=== PATIENT | female | born 1935 | race Caucasian/White ===

== ENCOUNTER 2022-08-12 11:53 | Inpatient (IN) | payer MEDICARE, MEDICAID, OTHER, SELFPAY ==
--- NOTE | ~2022-08-12 | CT_ITS ---
EXAMINATION: CT HEAD WITHOUT CONTRAST CLINICAL INFORMATION: Right arm weakness, rule out stroke. COMPARISON: None TECHNIQUE: Contiguous axial imaging was performed from the skull base to vertex without intravenous administration of contrast. Coronal and sagittal reformatted images were obtained. This CT examination was performed using dose optimization techniques as appropriate, variously including the following: *Automated exposure control *Adjustment of mA and/or kV according to patient size (this includes techniques or standardized protocols for targeted exams where dose is matched to indication/reason for exam; i.e. extremities or head) *Use of iterative reconstruction technique DLP: 646 mGy-cm FINDINGS: There is mild widening of the cortical sulci and associated ventriculomegaly. The lateral ventricles are symmetrical. Mild to moderate periventricular microvascular changes are seen. The third and fourth ventricles are in their normal midline position. The basilar and prepontine cisterns are unremarkable. There is no acute intra or extracerebral abnormality. There is no mass effect or midline shift. Sections through the bony calvarium are unremarkable. The orbits are intact. The paranasal sinuses are clear. The mastoid air cells are clear. Left ash bullosa. CT/CT head/brain wo IV con IMPRESSION: No acute intracranial pathology.
--- NOTE | ~2022-08-12 | XR_ITS ---
EXAMINATION: XR SHOULDER, RIGHT CLINICAL INFORMATION: Post reduction COMPARISON: Previous chest x-ray from earlier the same day TECHNIQUE: AP view of the right shoulder. FINDINGS: Right humeral prosthesis appears medially and slightly inferiorly dislocated with respect to the glenoid. This is similar to chest x-ray from earlier the same day. There are well-corticated soft tissue ossifications adjacent to the right shoulder. There is arthritis at the right acromioclavicular joint. XR/XR shoulder RT 1V IMPRESSION: Right shoulder dislocation similar to chest x-ray from earlier the same day
--- NOTE | ~2022-08-12 | XR_ITS ---
EXAMINATION: XR CHEST CLINICAL INFORMATION: Cough COMPARISON: 03/26/2019 TECHNIQUE: Portable 1:57 PM upright view of the chest was obtained. FINDINGS: Heart size remains top normal. In the interim, there is a irregular masslike opacity left midlung zone measuring up to approximately 5.8 cm. Lesser parenchymal disease left lower lobe. Healed left upper rib fracture noted new since previous. The right shoulder arthroplasty changes appear to be medially and inferiorly dislocated. Clips base of right neck. No other change. Prominence of the pulmonary arteries again noted suggestive of pulmonary hypertension. XR/XR chest 1V IMPRESSION: Abnormal chest x-ray as above. Masslike opacity left midlung zone with lesser parenchymal disease left lower lobe. Findings are suspicious for pneumonia although somewhat atypical. Recommend follow-up to ensure complete resolution and to exclude a masslike abnormality. Anterior subcoracoid dislocation right shoulder prosthesis.
--- NOTE | ~2022-08-12 | XR_ITS ---
EXAMINATION: XR CHEST CLINICAL INFORMATION: Shortness of breath COMPARISON: Chest x-ray and CTA chest 08/12/2022 TECHNIQUE: Frontal view of the chest was obtained. FINDINGS: Cardiac silhouette is stable. Atherosclerotic disease of the aortic arch. Airspace opacity of the lateral left lung and left lung base. Increased in prominence from imaging 2 days ago. No pleural effusion identified. No pneumothorax. Similar postsurgical changes of the right shoulder which appears chronically dislocated. XR/XR chest 1V IMPRESSION: Interval increase in prominence of airspace disease of the lateral left lung and left lung base. Follow-up imaging recommended status post treatment to ensure resolution.
--- NOTE | ~2022-08-12 | CT_ITS ---
EXAMINATION: CT ANGIOGRAM OF THE CHEST WITH AND WITHOUT CONTRAST (CT PULMONARY ANGIOGRAM FOR PE) CLINICAL INFORMATION: Reason for Exam Chest pain, lung mass, R/O PE COMPARISON: Chest x-ray 08/12/2022 CT chest 09/16/2012 TECHNIQUE: Prior to contrast administration, noncontrast localization images were obtained. Subsequently, multidetector volumetric imaging was performed from the thoracic inlet to below the diaphragms following the administration of 65 mL Omnipaque 350 intravenous contrast. No contrast reaction reported Sagittal, coronal, and MIP oblique sagittal reformatted images were obtained on the CT workstation, uploaded to PACS, and reviewed. This CT examination was performed using dose optimization techniques as appropriate, variously including the following: *Automated exposure control *Adjustment of mA and/or kV according to patient size (this includes techniques or standardized protocols for targeted exams where dose is matched to indication/reason for exam; i.e. extremities or head) *Use of iterative reconstruction technique Total exam dose-length product 230 mGy-cm FINDINGS: QUALITY OF STUDY/CONTRAST BOLUS: Satisfactory. PULMONARY ARTERIES: No central or segmental pulmonary emboli. THORACIC AORTA: No aneurysm or dissection. LUNG: Multifocal groundglass and partially consolidated airspace opacities in the left upper lobe and left lower lobe. Linear atelectasis or scarring in the anterior right upper lobe. No suspicious lung nodule. Small calcified granuloma right upper lobe. PLEURA: No pleural effusion or pneumothorax. MEDIASTINUM: Normal heart size. No pericardial effusion. No hilar or mediastinal lymphadenopathy. No evidence of septal bowing or right heart strain. Coronary arteries: Heavy volume of coronary artery calcification. CHEST WALL/AXILLA: No axillary or internal mammary lymphadenopathy. OSSEOUS STRUCTURES: Status post right shoulder replacement. This does cause streak artifact through the upper chest. UPPER ABDOMEN: Unremarkable. No reflux of contrast into the hepatic veins to suggest elevated right heart pressures. CT/CT angio chest PE protocol IMPRESSION: 1. No evidence of pulmonary embolism. 2. Multifocal airspace disease in the left lung 3. VTE: negative
--- NOTE | 2022-08-12 12:06 | ED_ITS ---
HPI - Weakness General Chief complaint: Weakness Stated complaint: weakness Time Seen by Provider: 08/12/22 11:56 Source: patient Mode of arrival: EMS Limitations: no limitations History of Present Illness HPI Narrative: 86-year-old female brought to emergency department by ambulance for evaluation weakness, headache, subjective fever, chills, chest pain, cough, shortness of breath, nausea, myalgias and arthralgias. Patient told me that she thought she was having a stroke. She states she has been feeling ill for approximately 2 days. She had a subjective fever and chills. She states that she has had rhino rrhea and a cough which is nonproductive x2 days. She complains of right-sided chest pain which she describes as a intermittent, heaviness which is moderate intensity worse with coughing. She had nausea with no vomiting or diarrhea. She states have burning with urination but no frequency. She has myalgias and arthralgias. She states she feels very weak and fatigued. The patient did have an operation on her right shoulder and states she has chronic right arm weakness but she believes that the weakness in her right arm is worse. She is also complaining of a constant, throbbing headache located throughout her entire head which is moderate intensity. She states that her symptoms got worse this morning at 08:30 a.m.. Complaint: generalized weakness Onset (ago): day(s) (2) Duration: constant Location: generalized and RUE Migration: none Severity: moderate Relieving factors: none Exacerbating factors: none Associated symptoms: chest pain, dysuria, fever/chills, headaches, nausea/vomiting, myalgias and shortness of breath Related Data Home Medications Medication Instructions Recorded Confirmed apixaban 5 mg tablet (Eliquis) 1 tab PO BID 08/12/22 atorvastatin 20 mg tablet 1 tab PO DAILY 08/12/22 diltiazem HCl 240 mg 1 cap PO DAILY 08/12/22 capsule,extended release 24 hr furosemide 40 mg tablet 1 tab PO BID 08/12/22 hydralazine 25 mg tablet 1 tab PO TID 08/12/22 levothyroxine 88 mcg tablet 1 tab PO DAILY 08/12/22 omeprazole 20 mg capsule,delayed 1 cap PO DAILY 08/12/22 release tramadol 50 mg tablet tab PO 08/12/22 Allergies Allergy/AdvReac Type Severity Reaction Status Date / Time No Known Allergies Allergy Unverified 05/20/20 17:32 Review of Systems Review of Systems: Yes all other systems are reviewed and are negative [facility] Past Medical History [facility] Narrative: Past medical history: COPD, depression, GERD, hyperlipidemia, hypothyroidism, paranoid schizophrenia, surgical repair right humerus 2015, thrush, total knee replacement, tubular adenoma of the colon, vitamin-D deficiency. Social history: The patient lives at [facility]. Medical History (Updated 08/12/22 @ 17:28 by Brennon Carlos MD) COPD (chronic obstructive pulmonary disease) Hypothyroidism Mental health disorder Shoulder symptoms with history of shoulder arthroplasty Social History Social History Advance Directives: Yes Advance Directives Information Provided: Yes Advance Directives on File: No Physical Exam 2 Vital Signs: Vital Signs: Last Vital Signs Temp 99.3 F 08/12/22 15:34 Pulse 76 08/12/22 15:34 Resp 14 08/12/22 15:34 BP 134/51 L 08/12/22 15:34 Pulse Ox 97 08/12/22 15:34 O2 Del Method 08/12/22 15:34 O2 Flow Rate 3.5 08/12/22 15:34 BMI result Body Mass Index 24.0 Const: General: cooperative and no acute distress Orientation/consciousness: oriented to person and oriented to place Limitations: no limitations HEENT: Head: Yes normal to inspection, Yes normocephalic and Yes atraumatic Ears: external ears normal General nose exam: Normal external nose present Face and sinus: Yes normal facial exam Mouth: Normal oral and palatal mucosa present Throat: Yes posterior oropharynx normal Eyes: General: appearance normal, both eyes and all related structures Pupils: Equal, round and reactive pupils present Neck: Neck: Yes normal visual inspection, Yes no lymphadenopathy, Yes trachea midline and Yes supple Chest: Chest palpation & inspection: normal inspection of the chest and normal palpation of entire chest wall Resp: Effort & Inspection: normal respiratory effort and able to speak in complete sentences Auscultation: rhonchi (Diffuse) Cardio: Rate: regular rate Rhythm: regular rhythm Heart sounds: S1 normal heart sound present, S2 normal heart sound present and no murmurs GI: Inspection: Yes normal to inspection Palpation (GI): Soft to palpation, nontender and no guarding Auscultation: normal bowel sounds : General: Yes no CVA tenderness Back/Spine/Pelvis: Back: no CVA tenderness Skin: General skin exam: no rashes or lesions noted Neuro: General: oriented to person and oriented to place Cranial nerves: Yes CN's II-XII intact bilaterally and Yes Equal, round and reactive pupils present Cognition (Neuro): normal cognition Motor exam (neuro): 5/5 motor strength present throughout (Patient had right shoulder surgery and has difficulty raising arm) Extrem: General: Yes normal to inspection Psych: Appearance: grossly normal Speech and movement: Normal speech and movement present Affect: normal affect Attitude: cooperative Thought process: Normal thought process present Thought content: Normal thought content present Course Course Course Narrative: 86-year-old female who presents emergency department for evaluation of generalized weakness with increased weakness of her right upper extremity ( patient had a right shoulder surgery and has chronic right arm weakness). Patient review of systems was positive for subjective fever, chills, rhinorrhea, nonproductive cough, right-sided chest pain, shortness of breath, nausea with no vomiting or diarrhea dysuria myalgias arthralgias-these symptoms have been going on for approximately 2 days. Physical examination did reveal diffuse rhonchorous sounds on her lung exam otherwise was unremarkable her neurologic exam was nonfocal. I ordered a CBC, CMP, lactic acid, lipase, PTT, PT INR, SARs/flu/RSV, troponin, urinalysis. I will also obtain a chest x-ray, CT scan of the brain and EKG. Patient was ordered to get normal saline IV x1 L, Toradol 15 mg IV and Zofran 4 mg IV. 1701: Laboratory evaluation: WBC elevated 13,000, anemia with an H&H of 11 and 32. Sodium low 124, chloride low 85, serum osmolality low 250, urine osmolality elevated 310, urine sodium elevated 56. Lactate acid is 1.4. Troponin detect able at 8.8 but not elevated. Radiology evaluation: Chest x-ray concerning for masslike opacity left mid lung with parenchymal disease a left lower lobe concerning for atypical pneumonia. Also anterior subcoracoid dislocation of the right shoulder prosthesis. CT pulmonary angiogram PE protocol: IMPRESSION: 1. No evidence of pulmonary embolism. 2. Multifocal airspace disease in the left lung 3. VTE: negative Dictated By:Brendan Jackson MDSigned By:<Electronically signed by Brendan Jackson MD in OV>08/12/22 1548 The patient viral pneumonia secondary to influenza. I will discuss the hyponatremia management with the covering living specialist. I will also doses just admission with the hospitalist. I did attempt to reduce the patient's shoulder, and I was unsuccessful. The patient did not fall and I suspect that this is a chronic finding. I do not think that the patient is well enough to try procedural sedation specially if this is a chronic condition. 1725: I did discuss the patient's presentation with the covering living specialist, Dr. Tamayo. 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 He recommended the patient have a oral fluid restriction of 1.5 L every 24 hours. I did discuss the patient's presentation with the covering hospitalist, Nurse practitioner check your drug use. Medications Administered Discontinued Medications Generic Name Dose Route Start Last Admin Trade Name Freq PRN Reason Stop Dose Admin Sodium Chloride 1,000 mls @ 999 mls/hr 08/12/22 12:07 08/12/22 12:38 Ns IV 08/12/22 13:07 999 mls/hr .Q1H1M STA Administration Ceftriaxone Sodium 1 gm/ 50 mls @ 100 mls/hr 08/12/22 14:19 08/12/22 16:04 Sodium Chloride IV 08/12/22 14:48 Infused ONCE ONE Infusion Azithromycin 500 mg/ Sodium 250 mls @ 125 mls/hr 08/12/22 14:19 08/12/22 16:05 Chloride IV 08/12/22 16:18 125 mls/hr ONCE ONE Administration Iohexol 65 ml 08/12/22 15:01 08/12/22 15:02 Iohexol 350 Mg/Ml 100 Ml Infus..Btl IV 08/12/22 15:02 65 ml ONCE ONE Administration Ketorolac Tromethamine 15 mg 08/12/22 12:07 08/12/22 12:37 Ketorolac Tromethamine 15 Mg/Ml Vial IVPUSH 08/12/22 12:08 15 mg ONCE STA Administration Ondansetron HCl 4 mg 08/12/22 12:07 08/12/22 12:37 Ondansetron Hcl 4 Mg/2 Ml Vial IVPUSH 08/12/22 12:08 4 mg ONCE ONE Administration Oseltamivir Phosphate 75 mg 08/12/22 14:19 08/12/22 15:11 Oseltamivir Phosphate 75 Mg Capsule PO 08/12/22 14:20 75 mg ONCE ONE Administration Medical Decision Making Medical Decision Making Differential Diagnoses: Differential diagnosis (Stroke COVID-19, RSV, flu, urinary tract infection, pneumonia) Consideration of admission/observation: Consideration of Admission/Observation (Yes) Discussion of management with other physician/healthcare provider/other source (e.g., hospitalist, j2ee consultant, behavioral health): Discussion w/other physician/healthcare provider (Donor Services Manager, hospitalist) My interpretation is Lab Attestation: I reviewed the patient's lab results. Independent interpretation of EKG, rhythm strip, radiology study: Independent interp EKG,rhythm strip, radiology study I performed an independent interpretation of the: EKG My interpretation is: Time: 1234: Normal sinus rhythm with a rate of 82, normal TX interval, QRS duration QTC interval, frequent PACs, less than [address] segment depression lead 1, 2, V5 and V6 Critical Care Time Critical Care Time Critical Care Time: Yes Total Critical Care Time: 45 Attestation: Critical Care: The patient was critically ill with a high probability of imminent or life threatening deterioration. I spent greater than 30 minutes of discontinuous time evaluating the patient,delivering critical care at the bedside, discussing and evaluating pertinent data with consultants. Critical care time does not include time spent performing separately billable procedures or teaching. Total time spent performing critical care was 45 minutes.
--- NOTE | 2022-08-12 12:07 | ECG_ITS ---
Test Reason : SOB Blood Pressure : / mmHG Vent. Rate : 082 BPM Atrial Rate : 082 BPM P-R Int : 128 ms QRS Dur : 090 ms QT Int : 384 ms P-R-T Axes : 061 014 270 degrees QTc Int : 448 ms Sinus rhythm with Premature supraventricular complexes Septal infarct , age undetermined Abnormal ECG When compared with ECG of 13-APR-2015 12:37, Premature supraventricular complexes are now Present ST now depressed in Inferior leads Nonspecific T wave abnormality now evident in Inferior leads T wave inversion now evident in Lateral leads Referred By: Brennon Carlos Electronically Signed By:PURA PAYNE MD
[2022-08-12 12:30] VITALS: BP 124/56; PULSE 70; O2SAT 94; BMI 24.0
[2022-08-12] MEDS: Ketorolac Tromethamine 15 MG/ML VIAL IVPUSH (12:37)
[2022-08-12] MEDS: ondansetron HCL 4 MG/2 ML VIAL IVPUSH (12:37)
[2022-08-12] MEDS: 0.9 % Sodium Chloride 1,000 ML 999 ML IV (12:38)
[2022-08-12 12:48] VITALS: BP 156/60; PULSE 77; RESP 14; TEMP 38.4; O2SAT 95
[2022-08-12 13:06] LABS: Basophils Percent Auto 0.1 % (0-2); Eosinophils Percent Auto 0.2 % (0-4); Hematocrit 32.8 % (37.0-47.0); Hemoglobin 11.4 g/dl (12.0-16.0); Imm Gran Abs Auto 0.06 X10*3/uL (0.00-0.03); Imm Gran Pct Auto 0.5 % (0.0-0.4); Lymphocytes Absolute Auto 0.3 X10*3/uL (1.2-4.9); Lymphocytes Percent Auto 2.6 % (20-40); MANUAL DIFF FLAG SCAN; Mean Corpuscular HGB Conc 34.8 g/dl (31.0-35.0); Mean Corpuscular Hemoglobin 30.6 pg (27.0-33.0); Mean Corpuscular Volume 87.9 fL (80.0-98.0); Mean Platelet Volume 9.3 fL (9.4-12.3); Monocytes Absolute Auto 0.4 X10*3/uL (0.1-1.2); Monocytes Percent Auto 3.2 % (2-11); Neutrophils Absolute Auto 12.2 x10*3/uL (2.0-8.3); Neutrophils Percent Auto 93.4 % (45-73); Platelet Count 235 X10*3/uL (160-400); Red Blood Count 3.73 X10*6/uL (4.20-5.50); Red Cell Distribution Width 13.2 % (11.0-16.0); SCAN SMEAR FLAG 1
[2022-08-12 13:14] LABS: INTERNATIONAL NORM RATIO 1.4 (0.9-1.1)
[2022-08-12 13:17] LABS: Partial Thromboplastin Time 34.8 SEC (26.0-36.4)
[2022-08-12 13:19] LABS: Lactic Acid 1.4 mmol/L (0.5-2.0)
[2022-08-12 13:24] LABS: Alanine Aminotransferase 16 U/L (0-31); Albumin Level 3.6 g/dL (3.5-5.0); Alkaline Phosphatase 141 U/L (39-117); Anion Gap 14 (12-20); Aspartate Amino Transferase 21 U/L (5-31); Bilirubin Total 0.4 mg/dL (0.0-1.0); Blood Urea Nitrogen 11 mg/dL (9-16); Calcium 8.4 mg/dL (8.4-10.2); Carbon Dioxide 27 mmol/L (22-29); Chloride 87 mmol/L (96-108); Creatinine Clr Calc Pharmacy 50.9; Estimated Glomerular Filt Rate > 60; Glucose Random 99 mg/dL (60-115); Lipase 8 U/L (8-78); Potassium 3.9 mmol/L (3.3-5.1); Sodium 124 mmol/L (135-145); Total Protein 5.8 g/dL (6.5-8.0)
[2022-08-12 13:29] LABS: Troponin-I High Sensitivity 8.8 ng/L (<3.5-17.0)
[2022-08-12 13:31] LABS: Appearance Urine Clear; Color Urine Yellow; Glucose Urine UA Negative (Negative); Leukocyte Esterase Urine Negative (Negative); Nitrite Urine Negative (Negative); PH 6.5 (5.0-9.0); Urine Blood Negative (Negative); Urine Ketones Negative (Negative); Urine Protein Negative (Neg-Trace)
[2022-08-12 13:35] LABS: SLIDE REVIEW VERIFIED
[2022-08-12 13:58] LABS: Influenza A PCR POSITIVE (Negative); Influenza B PCR NEGATIVE (Negative); Resp Syncy Virus RNA Qual PCR NEGATIVE (Negative); SARS COV2 PCR INHOUSE NEGATIVE (Negative)
[2022-08-12 14:49] LABS: Osmolality, Serum 255 mosm/kg (281-305)
[2022-08-12 14:49] LABS: Osmolality Urine 310 mosm/kg (373-1093)
[2022-08-12] MEDS: iohexoL 350 MG/ML 100 ML INFUS..BTL 65 ML IV (15:02)
[2022-08-12] MEDS: cefTRIAXone sodium 1 GM in 0.9 % Sodium Chloride 50 ML IV (15:10)
[2022-08-12] MEDS: Oseltamivir Phosphate 75 MG CAPSULE PO (15:11)
--- NOTE | 2022-08-12 15:18 | PC.NURSE ---
#20 IV placed in right AC without any difficulty. During CT her IV had Blown at the very end of the procedure, ice applied to site
[2022-08-12 15:34] VITALS: BP 134/51; PULSE 76; RESP 14; TEMP 37.4; O2SAT 97
[2022-08-12] MEDS: Azithromycin 500 MG in 0.9 % Sodium Chloride 250 ML 125 MG IV (16:05)
--- NOTE | 2022-08-12 17:12 | P.HPHOSP_ITS ---
History of Present Illness Date of Service: 08/12/22 Attending physician on admission: [facility] Chief Complaint: Cough 86-year-old woman presenting from assisted living facility with weakness, fever, chills, non productive cough, shortness breath, nausea, myalgias, arthralgias, rhinorrhea, intermittent right-sided chest pain with moderate heaviness mostly worse with coughing. Patient thought that she was having a stroke because she could not move her arm. She had been feeling unwell for approximately 2 days now.CTA showed left-sided pneumonia, right shoulder x-ray showed dislocation unknown if this is chronic, attempted reset in the ER was unsuccessful. Sodium was noted to be low 124, likely secondary to SIADH, fever noted of 11.2, stable blood pressure. Influenza A positive. She was given a dose of Rocephin, azithromycin, Tamiflu, Zofran, Toradol, IV fluids. She will be admitted for further management and treatment of sepsis secondary to community-acquired pneumonia and influenza A. Review of Systems Review of Systems: Denies any recent fever chills or decrease in appetite respiratory dry cough cardiovascular Denied chest pain gastrointestinal denies any dysphagia abdominal pain nausea vomiting or diarrhea genitourinary denies any dysuria frequency or hematuria musculoskeletal denies any joint pain or swelling neuropsych denies any weakness or seizures all other systems reviewed are negative [facility] Medical History (Updated 08/12/22 @ 17:28 by Brennon Carlos MD) COPD (chronic obstructive pulmonary disease) Hypothyroidism Mental health disorder Shoulder symptoms with history of shoulder arthroplasty Social History Advance Directives: Yes Advance Directives Information Provided: Yes Advance Directives on File: No Meds Allergies Allergy/AdvReac Type Severity Reaction Status Date / Time No Known Allergies Allergy Unverified 05/20/20 17:32 Home Medications Medication Instructions Recorded Confirmed Last Taken Type acetaminophen 325 mg tablet 650 mg PO Q4H PRN Fever Or Pain 08/12/22 08/12/22 08/10/22 History albuterol sulfate 90 mcg/actuation 2 puff inhalation Q4H PRN 08/12/22 08/12/22 Unknown History aerosol inhaler (ProAir HFA) Shortness Of Breath Or Wheezing apixaban 5 mg tablet (Eliquis) 5 mg PO BID 08/12/22 08/12/22 08/12/22 09:00 History ascorbic acid (vitamin C) 500 mg 500 mg PO DAILY@1200 08/12/22 08/12/22 08/12/22 12:00 History tablet atorvastatin 20 mg tablet 20 mg PO BEDTIME 08/12/22 08/12/22 08/11/22 History calcium carbonate 500 mg calcium 500 mg PO DAILY@1200 08/12/22 08/12/22 08/12/22 12:00 History (1,250 mg) tablet (Oyster Shell Calcium) cholecalciferol (vitamin D3) 25 25 mcg PO DAILY@1200 08/12/22 08/12/22 08/12/22 12:00 History mcg (1,000 unit) tablet clopidogrel 75 mg tablet 75 mg PO DAILY 08/12/22 08/12/22 08/12/22 History diltiazem HCl 240 mg 240 mg PO DAILY 08/12/22 08/12/22 08/12/22 History capsule,extended release 24 hr estradiol 0.01% (0.1 mg/gram) 1 g vaginal MOWEFR 08/12/22 08/12/22 08/11/22 History vaginal cream ferrous sulfate 325 mg (65 mg 325 mg PO DAILY@1200 08/12/22 08/12/22 08/12/22 12:00 History iron) tablet fluticasone fur. 100 mcg-umeclid 1 inh inhalation DAILY@0800 08/12/22 08/12/22 08/12/22 History 62.5 mcg-vilant 25 mcg inhalat.powder (Trelegy Ellipta) furosemide 40 mg tablet 40 mg PO BID@0600,1200 08/12/22 08/12/22 08/12/22 12:00 History hydralazine 25 mg tablet 25 mg PO TID 08/12/22 08/12/22 08/12/22 12:00 History levothyroxine 88 mcg tablet 88 mcg PO DAILY@0600 08/12/22 08/12/22 08/12/22 History lisinopril 40 mg tablet 40 mg PO DAILY 08/12/22 08/12/22 08/12/22 History multivitamin,tx-minerals 1 tab PO DAILY@1200 08/12/22 08/12/22 08/12/22 12:00 History omeprazole 20 mg capsule,delayed 20 mg PO DAILY@0630 08/12/22 08/12/2208/12/22 History release polyvinyl alcohol 1.4 % eye drops 1 drp ophthalmic (eye) DAILY PRN 08/12/22 08/12/22 Unknown History (Artificial Tears (polyvinyl Dry Eye(S) alcohol)) sodium chloride 1,000 mg soluble 1,000 mg PO BID 08/12/22 08/12/22 08/12/22 08:00 History tablet tramadol 50 mg tablet 25 mg PO TID 08/12/22 08/12/22 08/12/22 14:00 History Physical Exam Vital Signs and Narrative: Vital Signs: Last Vital Signs Temp 99.3 F 08/12/22 15:34 Pulse 76 08/12/22 15:34 Resp 14 08/12/22 15:34 BP 134/51 L 08/12/22 15:34 Pulse Ox 97 08/12/22 15:34 O2 Del Method 08/12/22 15:34 O2 Flow Rate 3.5 08/12/22 15:34 BMI result Body Mass Index 24.0 Appearing in no acute distress head is normocephalic atraumatic eyes pupils are PERRLA sclera is anicteric mouth throat mucous membranes are intact and moist neck is supple no lymphadenopathy, no JVD noted lung sounds are clear to auscultation heart regular rate rhythm, clear S1, S2 positive bowel sounds, abdomen is soft, nontender neuro patient is alert x3, no focal deficits Results Labs CBC and Chem 7: 08/13/22 06:15 08/13/22 06:14 Labs: Laboratory Results - last 24 hr 08/12/22 08/12/22 08/12/22 12:58 12:58 12:58 MCV 87.9 MCH 30.6 MCHC 34.8 RDW 13.2 Plt Count 235 MPV 9.3 L Immature Gran % (Auto) 0.5 H Neut % (Auto) 93.4 H Lymph % (Auto) 2.6 L [place] % (Auto) 3.2 Eos % (Auto) 0.2 Baso % (Auto) 0.1 Lymph # (Auto) 0.3 L [place] # (Auto) 0.4 Eos # (Auto) 0.0 Baso # (Auto) 0.0 Abs Immat Gran (auto) 0.06 H Absolute Neuts (auto) 12.2 H Absolute Nucleated RBC 0.000 Nucleated RBC % (auto) 0.0 Smear Tech's Comments VERIFIED PT INR APTT Anion Gap 14 Estim Creat Clear Calc 50.9 Estimated GFR > 60 Random Glucose 99 Osmolality Lactic Acid 1.4 Calcium 8.4 Total Bilirubin 0.4 AST 21 ALT 16 Alkaline Phosphatase 141 H Troponin I High Sens Total Protein 5.8 L Albumin 3.6 Lipase 8 Urine Color Urine Appearance Urine pH Ur Specific [place] Urine Protein Urine Glucose (UA) Urine Ketones Urine Blood Urine Nitrite Ur Leukocyte Esterase Urine Osmolality Ur Random Sodium Influenza Type A (PCR) Influenza Type B (PCR) RSV RNA Qual (PCR) SARS-CoV-2 RNA (RT-PCR) 08/12/22 08/12/22 08/12/22 12:58 12:58 12:58 MCV MCH MCHC RDW Plt Count MPV Immature Gran % (Auto) Neut % (Auto) Lymph % (Auto) [place] % (Auto) Eos % (Auto) Baso % (Auto) Lymph # (Auto) [place] # (Auto) Eos # (Auto) Baso # (Auto) Abs Immat Gran (auto) Absolute Neuts (auto) Absolute Nucleated RBC Nucleated RBC % (auto) Smear Tech's Comments PT 16.0 H INR 1.4 H APTT 34.8 Anion Gap Estim Creat Clear Calc Estimated GFR Random Glucose Osmolality Lactic Acid Calcium Total Bilirubin AST ALT Alkaline Phosphatase Troponin I High Sens 8.8 Total Protein Albumin Lipase Urine Color Urine Appearance Urine pH Ur Specific [place] Urine Protein Urine Glucose (UA) Urine Ketones Urine Blood Urine Nitrite Ur Leukocyte Esterase Urine Osmolality Ur Random Sodium Influenza Type A (PCR) POSITIVE A Influenza Type B (PCR) NEGATIVE RSV RNA Qual (PCR) NEGATIVE SARS-CoV-2 RNA (RT-PCR) NEGATIVE 08/12/22 08/12/22 08/12/22 12:58 13:21 13:21 MCV MCH MCHC RDW Plt Count MPV Immature Gran % (Auto) Neut % (Auto) Lymph % (Auto) [place] % (Auto) Eos % (Auto) Baso % (Auto) Lymph # (Auto) [place] # (Auto) Eos # (Auto) Baso # (Auto) Abs Immat Gran (auto) Absolute Neuts (auto) Absolute Nucleated RBC Nucleated RBC % (auto) Smear Tech's Comments PT INR APTT Anion Gap Estim Creat Clear Calc Estimated GFR Random Glucose Osmolality 255 L Lactic Acid Calcium Total Bilirubin AST ALT Alkaline Phosphatase Troponin I High Sens Total Protein Albumin Lipase Urine Color Yellow Urine Appearance Clear Urine pH 6.5 Ur Specific [place] 1.010 Urine Protein Negative Urine Glucose (UA) Negative Urine Ketones Negative Urine Blood Negative Urine Nitrite Negative Ur Leukocyte Esterase Negative Urine Osmolality 310 L Ur Random Sodium Influenza Type A (PCR) Influenza Type B (PCR) RSV RNA Qual (PCR) SARS-CoV-2 RNA (RT-PCR) 08/12/22 13:21 MCV MCH MCHC RDW Plt Count MPV Immature Gran % (Auto) Neut % (Auto) Lymph % (Auto) [place] % (Auto) Eos % (Auto) Baso % (Auto) Lymph # (Auto) [place] # (Auto) Eos # (Auto) Baso # (Auto) Abs Immat Gran (auto) Absolute Neuts (auto) Absolute Nucleated RBC Nucleated RBC % (auto) Smear Tech's Comments PT INR APTT Anion Gap Estim Creat Clear Calc Estimated GFR Random Glucose Osmolality Lactic Acid Calcium Total Bilirubin AST ALT Alkaline Phosphatase Troponin I High Sens Total Protein Albumin Lipase Urine Color Urine Appearance Urine pH Ur Specific [place] Urine Protein Urine Glucose (UA) Urine Ketones Urine Blood Urine Nitrite Ur Leukocyte Esterase Urine Osmolality Ur Random Sodium 56.0 Influenza Type A (PCR) Influenza Type B (PCR) RSV RNA Qual (PCR) SARS-CoV-2 RNA (RT-PCR) Imaging Radiologist's Impressions: Impressions Head CT 08/12/22 12:28 IMPRESSION: No acute intracranial pathology. Chest X-Ray 08/12/22 14:00 IMPRESSION: Abnormal chest x-ray as above. Masslike opacity left midlung zone with lesser parenchymal disease left lower lobe. Findings are suspicious for pneumonia although somewhat atypical. Recommend follow-up to ensure complete resolution and to exclude a masslike abnormality. Anterior subcoracoid dislocation right shoulder prosthesis. Shoulder X-Ray 08/12/22 14:44 IMPRESSION: Right shoulder dislocation similar to chest x-ray from earlier the same day Chest CTA 08/12/22 15:24 IMPRESSION: 1. No evidence of pulmonary embolism. 2. Multifocal airspace disease in the left lung 3. VTE: negative Assessment and Plan (1) Influenza A: Status: Acute Plan 86 year old women admitted from assisted living facility with sepsis secondary to pneumonia and influenza A Sepsis secondary to CAP in influenza a Fever and leukocytosis, normal lactic acid Rocephin and azithromycin Continue supplemental oxygen as needed Tamiflu Hyponatremia ? SIADH 1.5L for 24 hours, no IV fluids Nephrology consultation Shoulder disclocation ? chronic Unable to reduce in ED will apply sling and consult orthopedic team Analgesics as needed Hypertension Stable blood pressure Continue home medications COPD no exacerbation Mental health continue home medications GERD PPI Hypothyroidism Levothyroxine DVT prophylaxis with Milagros Attending Dr. Morales Full code Medication reconciliation is pending Patient will be admitted for 2 inpatient midnights for treatment of sepsis secondary to community-acquired pneumonia and hyponatremia Time Spent With Patient Time: Total time managing care of this patient today ____ minutes. Quality Stroke Does the patient have a stroke diagnosis?: No VTE Prior VTE?: No VTE Risk Level:: Medical - moderate - high VTE Device Contraindication: Treatment Not Indicated VTE Drug Contraindication: N/A - Med Ordered
[2022-08-12] MEDS: Acetaminophen 325 MG TABLET 650 MG PO (17:46)
[2022-08-12] MEDS: oxyCODONE HCl Immed Release 5 MG TABLET PO (17:47)
[2022-08-12 19:41] VITALS: BP 135/46; PULSE 67; RESP 20; TEMP 36.9; O2SAT 96
--- NOTE | 2022-08-12 19:49 | PC.NURSE ---
assumed care of patient at 1900 - report received from Rochelle RN. patient sleeping comfortably on stretcher. vital signs updated. call vasquez within reach. will continue to monitor . patient wearing 3L O2 baseline
--- NOTE | 2022-08-12 19:53 | PHA.MEDREC ---
Pharmacy Consult ? Medication Reconciliation Pharmacy has completed the medication reconciliation. Obtained list from [facility] [place] and completed medication list from chart.
[2022-08-13] VITALS (8 sets, daily range): BP systolic 102–158; BP diastolic 48–70; PULSE 69–91; RESP 15–20; TEMP 36.8–37.5; O2SAT 91–98
[2022-08-13 06:34] LABS: Basophils Absolute Auto 0.1 X10*3/uL (0.0-0.2); Basophils Percent Auto 0.2 % (0-2); Eosinophils Absolute Auto 0.2 X10*3/uL (0.0-0.4); Hematocrit 32.5 % (37.0-47.0); Imm Gran Abs Auto 0.17 X10*3/uL (0.00-0.03); Imm Gran Pct Auto 0.8 % (0.0-0.4); Lymphocytes Absolute Auto 0.7 X10*3/uL (1.2-4.9); Lymphocytes Percent Auto 3.5 % (20-40); MANUAL DIFF FLAG SCAN; Mean Corpuscular HGB Conc 33.8 g/dl (31.0-35.0); Mean Corpuscular Hemoglobin 30.3 pg (27.0-33.0); Mean Corpuscular Volume 89.5 fL (80.0-98.0); Mean Platelet Volume 9.7 fL (9.4-12.3); Monocytes Absolute Auto 0.8 X10*3/uL (0.1-1.2); Monocytes Percent Auto 3.9 % (2-11); Neutrophils Absolute Auto 18.8 x10*3/uL (2.0-8.3); Neutrophils Percent Auto 90.6 % (45-73); Platelet Count 231 X10*3/uL (160-400); Red Blood Count 3.63 X10*6/uL (4.20-5.50); Red Cell Distribution Width 13.2 % (11.0-16.0); SCAN SMEAR FLAG 1; White Blood Count 20.8 X10*3/uL (4.8-10.8)
[2022-08-13 06:41] LABS: Anion Gap 15 (12-20); Blood Urea Nitrogen 12 mg/dL (9-16); Calcium 8.4 mg/dL (8.4-10.2); Carbon Dioxide 24 mmol/L (22-29); Chloride 92 mmol/L (96-108); Creatinine Clr Calc Pharmacy 53.1; Estimated Glomerular Filt Rate > 60; Glucose Random 85 mg/dL (60-115); Potassium 3.7 mmol/L (3.3-5.1); Sodium 127 mmol/L (135-145)
[2022-08-13 06:42] LABS: Magnesium 1.6 mg/dL (1.6-2.6)
[2022-08-13 06:54] LABS: SLIDE REVIEW VERIFIED
[2022-08-13] MEDS: Clopidogrel Bisulfate 75 MG TABLET PO (09:11)
[2022-08-13] MEDS: dilTIAZem HCL CD 240 MG CAP.ER.DEG PO (09:12)
[2022-08-13] MEDS: lisinopriL 40 MG TABLET PO (09:12)
[2022-08-13] MEDS: traMADoL HCL 50 MG TABLET 25 MG PO ×3 (09:12→20:52)
[2022-08-13] MEDS: hydrALAZINE HCl 25 MG TABLET PO ×3 (09:13→20:53)
[2022-08-13] MEDS: 0.9 % Sodium Chloride Flush 3 ML SYRINGE IVFLUSH ×3 (09:13→20:52)
--- NOTE | 2022-08-13 09:50 | P.PNIM_ITS ---
Subjective Subjective Date of Service: 08/13/22 Review of Systems Sepsis secondary to community-acquired pneumonia and flu Physical Exam Vital Signs: Vital Signs: Last Vital Signs Temp 98.5 F 08/13/22 09:07 Pulse 80 08/13/22 09:07 Resp 20 08/13/22 09:07 BP 145/61 H 08/13/22 09:07 Pulse Ox 94 08/13/22 09:07 O2 Del Method 08/13/22 09:07 O2 Flow Rate 3.5 08/13/22 09:07 BMI result Body Mass Index 24.0 Objective Data Active Medications Acetaminophen (Acetaminophen 325 Mg Tablet) 650 mg PO Q6H PRN PRN Reason: Pain, Mild (Pain Scale 1-3) Last Admin: 08/12/22 17:46 Dose: 650 mg Documented By: AMBER Albuterol Sulfate (Albuterol Sulfate 90 Mcg 8 Gm Inhaler) 2 puff INHALE Q4H PRN PRN Reason: Shortness Of Breath Or Wheezing Artificial Tears (Artificial Tears 15 Ml Drops) 1 drop EYE-BOTH DAILY PRN PRN Reason: Dry Eye(S) Ascorbic Acid (Ascorbic Acid 500 Mg Tablet) 500 mg PO DAILY@1200 N[facility] Atorvastatin Calcium (Atorvastatin Calcium 20 Mg Tablet) 20 mg PO BEDTIME NAA Calcium Carbonate (Calcium Carbonate 500 Mg Tablet) 500 mg PO DAILY@1200 NAA Clopidogrel Bisulfate (Clopidogrel Bisulfate 75 Mg Tablet) 75 mg PO DAILY [facility] Last Admin: 08/13/22 09:11 Dose: 75 mg Documented By: KERRIE Diltiazem HCl (Diltiazem Hcl Cd 240 Mg Cap.Er.Deg) 240 mg PO DAILY [facility]; Protocol Last Admin: 08/13/22 09:12 Dose: 240 mg Documented By: KERRIE Ferrous Sulfate (Ferrous Sulfate 324 Mg Tablet.Dr) 324 mg PO DAILY@1200 N[facility] Furosemide (Furosemide 40 Mg Tablet) 40 mg PO BID@0600,1200 [facility]; Protocol Hydralazine HCl (Hydralazine Hcl 25 Mg Tablet) 25 mg PO TID [facility]; Protocol Last Admin: 08/13/22 09:13 Dose: 25 mg Documented By: KERRIE Ceftriaxone Sodium 1 gm/ (Sodium Chloride) 50 mls @ 100 mls/hr IV Q24H NAA Azithromycin 500 mg/ Sodium (Chloride) 250 mls @ 125 mls/hr IV Q24H [facility]AA Levothyroxine Sodium (Levothyroxine Sodium 88 Mcg Tablet) 88 mcg PO DAILY@0600 [facility] Lisinopril (Lisinopril 40 Mg Tablet) 40 mg PO DAILY [facility]; Protocol Last Admin: 08/13/22 09:12 Dose: 40 mg Documented By: KERRIE Multivitamins/Vitamin C (Multivitamin Tablet) 1 tab PO DAILY@1200 [facility] Non-Formulary Medication (Ijbybjfwone-Pukukqulf-Apjztisl [Trelegy Ellipta]) 1 inhalation INHALE DAILY@0800 [facility] Omeprazole (Omeprazole 20 Mg Capsule.Dr) 20 mg PO DAILY@0630 [facility] Ondansetron HCl (Ondansetron Hcl 4 Mg/2 Ml Vial) 4 mg IVPUSH Q8H PRN PRN Reason: Nausea and Vomiting Oseltamivir Phosphate (Oseltamivir Phosphate 75 Mg Capsule) 75 mg PO Q24H [facility] Stop: 08/17/22 14:01 Oxycodone HCl (Oxycodone Hcl Immed Release 5 Mg Tablet) 5 mg PO Q6H PRN PRN Reason: Pain, Mild (Pain Scale 1-3) Last Admin: 08/12/22 17:47 Dose: 5 mg Documented By: AMBER Pharmacy Consult (Consult Rx Perform Med Rec) 1 each MISCELLANE ONCE PRN PRN Reason: Consult order Sodium Chloride (0.9 % Sodium Chloride Flush 3 Ml Syringe) 3 ml [facility]USH [facility] Last Admin: 08/13/22 09:13 Dose: 3 ml Documented By: KERRIE Tramadol HCl (Tramadol Hcl 50 Mg Tablet) 25 mg PO TID [facility] Last Admin: 08/13/22 09:12 Dose: 25 mg Documented By: KERRIE Vitamin D (Cholecalciferol (Vitamin D3) 25 Mcg Tablet) 25 mcg PO DAILY@1200 [facility] Labs CBC & Chem 7: 08/13/22 06:15 08/13/22 06:14 Labs: Laboratory Results - last 24 hr 08/12/22 08/12/22 08/12/22 12:58 12:58 12:58 MCV 87.9 MCH 30.6 MCHC 34.8 RDW 13.2 Plt Count 235 MPV 9.3 L Immature Gran % (Auto) 0.5 H Neut % (Auto) 93.4 H Lymph % (Auto) 2.6 L [place] % (Auto) 3.2 Eos % (Auto) 0.2 Baso % (Auto) 0.1 Lymph # (Auto) 0.3 L [place] # (Auto) 0.4 Eos # (Auto) 0.0 Baso # (Auto) 0.0 Abs Immat Gran (auto) 0.06 H Absolute Neuts (auto) 12.2 H Absolute Nucleated RBC 0.000 Nucleated RBC % (auto) 0.0 Smear Tech's Comments VERIFIED PT INR APTT Anion Gap 14 Estim Creat Clear Calc 50.9 Estimated GFR > 60 Random Glucose 99 Osmolality Lactic Acid 1.4 Calcium 8.4 Magnesium Total Bilirubin 0.4 AST 21 ALT 16 Alkaline Phosphatase 141 H Troponin I High Sens Total Protein 5.8 L Albumin 3.6 Lipase 8 Urine Color Urine Appearance Urine pH Ur Specific [place] Urine Protein Urine Glucose (UA) Urine Ketones Urine Blood Urine Nitrite Ur Leukocyte Esterase Urine Osmolality Ur Random Sodium Influenza Type A (PCR) Influenza Type B (PCR) RSV RNA Qual (PCR) SARS-CoV-2 RNA (RT-PCR) 08/12/22 08/12/22 08/12/22 12:58 12:58 12:58 MCV MCH MCHC RDW Plt Count MPV Immature Gran % (Auto) Neut % (Auto) Lymph % (Auto) [place] % (Auto) Eos % (Auto) Baso % (Auto) Lymph # (Auto) [place] # (Auto) Eos # (Auto) Baso # (Auto) Abs Immat Gran (auto) Absolute Neuts (auto) Absolute Nucleated RBC Nucleated RBC % (auto) Smear Tech's Comments PT 16.0 H INR 1.4 H APTT 34.8 Anion Gap Estim Creat Clear Calc Estimated GFR Random Glucose Osmolality Lactic Acid Calcium Magnesium Total Bilirubin AST ALT Alkaline Phosphatase Troponin I High Sens 8.8 Total Protein Albumin Lipase Urine Color Urine Appearance Urine pH Ur Specific [place] Urine Protein Urine Glucose (UA) Urine Ketones Urine Blood Urine Nitrite Ur Leukocyte Esterase Urine Osmolality Ur Random Sodium Influenza Type A (PCR) POSITIVE A Influenza Type B (PCR) NEGATIVE RSV RNA Qual (PCR) NEGATIVE SARS-CoV-2 RNA (RT-PCR) NEGATIVE 08/12/22 08/12/22 08/12/22 12:58 13:21 13:21 MCV MCH MCHC RDW Plt Count MPV Immature Gran % (Auto) Neut % (Auto) Lymph % (Auto) [place] % (Auto) Eos % (Auto) Baso % (Auto) Lymph # (Auto) [place] # (Auto) Eos # (Auto) Baso # (Auto) Abs Immat Gran (auto) Absolute Neuts (auto) Absolute Nucleated RBC Nucleated RBC % (auto) Smear Tech's Comments PT INR APTT Anion Gap Estim Creat Clear Calc Estimated GFR Random Glucose Osmolality 255 L Lactic Acid Calcium Magnesium Total Bilirubin AST ALT Alkaline Phosphatase Troponin I High Sens Total Protein Albumin Lipase Urine Color Yellow Urine Appearance Clear Urine pH 6.5 Ur Specific [place] 1.010 Urine Protein Negative Urine Glucose (UA) Negative Urine Ketones Negative Urine Blood Negative Urine Nitrite Negative Ur Leukocyte Esterase Negative Urine Osmolality 310 L Ur Random Sodium Influenza Type A (PCR) Influenza Type B (PCR) RSV RNA Qual (PCR) SARS-CoV-2 RNA (RT-PCR) 08/12/22 08/13/22 08/13/22 13:21 06:14 06:14 MCV MCH MCHC RDW Plt Count MPV Immature Gran % (Auto) Neut % (Auto) Lymph % (Auto) [place] % (Auto) Eos % (Auto) Baso % (Auto) Lymph # (Auto) [place] # (Auto) Eos # (Auto) Baso # (Auto) Abs Immat Gran (auto) Absolute Neuts (auto) Absolute Nucleated RBC Nucleated RBC % (auto) Smear Tech's Comments PT INR APTT Anion Gap 15 Estim Creat Clear Calc 53.1 Estimated GFR > 60 Random Glucose 85 Osmolality Lactic Acid Calcium 8.4 Magnesium 1.6 Total Bilirubin AST ALT Alkaline Phosphatase Troponin I High Sens Total Protein Albumin Lipase Urine Color Urine Appearance Urine pH Ur Specific [place] Urine Protein Urine Glucose (UA) Urine Ketones Urine Blood Urine Nitrite Ur Leukocyte Esterase Urine Osmolality Ur Random Sodium 56.0 Influenza Type A (PCR) Influenza Type B (PCR) RSV RNA Qual (PCR) SARS-CoV-2 RNA (RT-PCR) 08/13/22 06:15 MCV 89.5 MCH 30.3 MCHC 33.8 RDW 13.2 Plt Count 231 MPV 9.7 Immature Gran % (Auto) 0.8 H Neut % (Auto) 90.6 H Lymph % (Auto) 3.5 L [place] % (Auto) 3.9 Eos % (Auto) 1.0 Baso % (Auto) 0.2 Lymph # (Auto) 0.7 L [place] # (Auto) 0.8 Eos # (Auto) 0.2 Baso # (Auto) 0.1 Abs Immat Gran (auto) 0.17 H Absolute Neuts (auto) 18.8 H Absolute Nucleated RBC 0.000 Nucleated RBC % (auto) 0.0 Smear Tech's Comments VERIFIED PT INR APTT Anion Gap Estim Creat Clear Calc Estimated GFR Random Glucose Osmolality Lactic Acid Calcium Magnesium Total Bilirubin AST ALT Alkaline Phosphatase Troponin I High Sens Total Protein Albumin Lipase Urine Color Urine Appearance Urine pH Ur Specific [place] Urine Protein Urine Glucose (UA) Urine Ketones Urine Blood Urine Nitrite Ur Leukocyte Esterase Urine Osmolality Ur Random Sodium Influenza Type A (PCR) Influenza Type B (PCR) RSV RNA Qual (PCR) SARS-CoV-2 RNA (RT-PCR) Assessment and Plan (1) Influenza A: Status: Acute Plan 86 year old women admitted from assisted living facility with sepsis secondary to pneumonia and influenza A Sepsis secondary to CAP in influenza a Fever and leukocytosis, normal lactic acid Rocephin and azithromycin Continue supplemental oxygen as needed Tamiflu Hyponatremia. Improving ? 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 GERD PPI Hypothyroidism Levothyroxine DVT prophylaxis with Milag[facility] Attending Dr. Morales Full code Continue hospitalization for treatment of sepsis secondary to community-acquired pneumonia and hyponatremia Time Spent With Patient Time: Total time managing care of this patient today ____ minutes. Quality Stroke Does the patient have a stroke diagnosis?: No VTE Prior VTE?: No VTE Risk Level:: Medical - moderate - high VTE Device Contraindication: Treatment Not Indicated VTE Drug Contraindication: N/A - Med Ordered
[2022-08-13] MEDS: Ferrous Sulfate 324 MG TABLET.DR PO (11:30)
[2022-08-13] MEDS: Cholecalciferol (Vitamin D3) 25 MCG TABLET PO (11:30)
[2022-08-13] MEDS: Ascorbic Acid 500 MG TABLET PO (11:30)
[2022-08-13] MEDS: Furosemide 40 MG TABLET PO (11:30)
[2022-08-13] MEDS: Multivitamin TABLET 1 TAB PO (11:30)
--- NOTE | 2022-08-13 12:32 | MHC.CM.PN ---
IMM EXPLAINED TO [facility], WHITE COPY LEFT AT BEDSIDE PER REQUEST, YELLOW COPY TO CHART. LIVES AT [facility]. USES [facility], [facility] X[address] PCP DR. THOMPSON AT FACILITY. DP: HOME, NO SERVICES, PLAN TO RETURN TO [facility] FAMILY VS[facility]BLS. CM WILL CONTINUE TO FOLLOW.
[2022-08-13] MEDS: Oseltamivir Phosphate 75 MG CAPSULE PO (14:47)
[2022-08-13] MEDS: cefTRIAXone sodium 1 GM in 0.9 % Sodium Chloride 50 ML IV (14:48)
--- NOTE | 2022-08-13 14:55 | PM.CNNEP ---
History of Present Illness Reason for Consult Consult date: 08/13/22 Reason for consult: Hyponatremia Chief Complaint Chief complaint: I thought I was having a st History of Present Illness Narrative: Purnima is an 86 yo woman with severe COPD, arthritis who presented feeling poorly with left arm pain, thinking she was having a stroke. She had weakness. She also noted cough and myalgias. She has chronic pain issues as well. She tells me she takes sodium tablets for a low sodium which developed when she had her carotid surgery. Her admission sodium was 124 with urine sodium 53 an d urine osm 308. She was on furosemide as an outpt. She was diagnosed with influenza and displaced right shoulder fracture as well as possible CAP. Her sodium is 127 today. She does see cardiology for heart problems but I do not see any echo or details.She carries a dx of pulm hypertension. Imaging on admission shows a large pulm mass-like infiltrate and changes consistent with pulm htn. Review of Systems Constitutional: Reports body ache(s), Reports lethargy and Reports weight loss Cardiovascular: Reports chest pain, Reports radiating jaw, neck or arm pain and Reports dyspnea Respiratory: Reports cough and Reports dyspnea Comments: no diarrhea or vomiting Comments: chronic leg movements PMFSH Past Medical History Medical History (Updated 08/13/22 @ 15:07 by Michelle Turcios MD) COPD (chronic obstructive pulmonary disease) Hypothyroidism Mental health disorder Shoulder symptoms with history of shoulder arthroplasty Social History Social History Household Members: Other Household Members Other:: lives in [facility] Home Housing: Assisted Living Facility Do you presently have visiting nurse or other home services: Yes Patient Tobacco Use Status: Current everyday Tobacco user Tobacco use type: Cigarette Cigarettes Per Day: 10 Advance Directives Date on File: 08/13/22 service: No Current occupational status: retired [employer] Allergies Allergy/AdvReac Type Severity Reaction Status Date / Time No Known Allergies Allergy Unverified 05/20/20 17:32 Active Medications: Current Medications Acetaminophen (Acetaminophen 325 Mg Tablet) 650 mg PO Q6H PRN PRN Reason: Pain, Mild (Pain Scale 1-3) Last Admin: 08/12/22 17:46 Dose: 650 mg Albuterol Sulfate (Albuterol Sulfate 90 Mcg 8 Gm Inhaler) 2 puff INHALE Q4H PRN PRN Reason: Shortness Of Breath Or Wheezing Apixaban (Apixaban 5 Mg Tablet) 5 mg PO BID [facility] Artificial Tears (Artificial Tears 15 Ml Drops) 1 drop EYE-BOTH DAILY PRN PRN Reason: Dry Eye(S) Ascorbic Acid (Ascorbic Acid 500 Mg Tablet) 500 mg PO DAILY@1200 [facility] Last Admin: 08/13/22 11:30 Dose: 500 mg Atorvastatin Calcium (Atorvastatin Calcium 20 Mg Tablet) 20 mg PO BEDTIME [facility] Calcium Carbonate (Calcium Carbonate 500 Mg Tablet) 500 mg PO DAILY@1200 [facility] Last Admin: 08/13/22 11:30 Dose: 500 mg Clopidogrel Bisulfate (Clopidogrel Bisulfate 75 Mg Tablet) 75 mg PO DAILY [facility] Last Admin: 08/13/22 09:11 Dose: 75 mg Diltiazem HCl (Diltiazem Hcl Cd 240 Mg Cap.Er.Deg) 240 mg PO DAILY [facility]; Protocol Last Admin: 08/13/22 09:12 Dose: 240 mg Ferrous Sulfate (Ferrous Sulfate 324 Mg Tablet.) 324 mg PO DAILY@1200 [facility] Last Admin: 08/13/22 11:30 Dose: 324 mg Furosemide (Furosemide 40 Mg Tablet) 40 mg PO BID@0600,1200 [facility]; Protocol Last Admin: 08/13/22 11:30 Dose: 40 mg Hydralazine HCl (Hydralazine Hcl 25 Mg Tablet) 25 mg PO TID [facility]; Protocol Last Admin: 08/13/22 14:47 Dose: 25 mg Ceftriaxone Sodium 1 gm/ (Sodium Chloride) 50 mls @ 100 mls/hr IV Q24H [facility] Last Admin: 08/13/22 14:48 Dose: 100 mls/hr Azithromycin 500 mg/ Sodium (Chloride) 250 mls @ 125 mls/hr IV Q24H [facility] Levothyroxine Sodium (Levothyroxine Sodium 88 Mcg Tablet) 88 mcg PO DAILY@0600 [facility] Lisinopril (Lisinopril 40 Mg Tablet) 40 mg PO DAILY [facility]; Protocol Last Admin: 08/13/22 09:12 Dose: 40 mg Multivitamins/Vitamin C (Multivitamin Tablet) 1 tab PO DAILY@1200 [facility] Last Admin: 08/13/22 11:30 Dose: 1 tab Non-Formulary Medication (Jqpesfmutpi-Wedzyyqdg-Hbuyxqdu [Trelegy Ellipta]) 1 inhalation INHALE DAILY@0800 [facility] Omeprazole (Omeprazole 20 Mg Capsule.) 20 mg PO DAILY@0630 [facility] Ondansetron HCl (Ondansetron Hcl 4 Mg/2 Ml Vial) 4 mg IVPUSH Q8H PRN PRN Reason: Nausea and Vomiting Oseltamivir Phosphate (Oseltamivir Phosphate 75 Mg Capsule) 75 mg PO Q24H [facility] Stop: 08/17/22 14:01 Last Admin: 08/13/22 14:47 Dose: 75 mg Oxycodone HCl (Oxycodone Hcl Immed Release 5 Mg Tablet) 5 mg PO Q6H PRN PRN Reason: Pain, Mild (Pain Scale 1-3) Last Admin: 08/12/22 17:47 Dose: 5 mg Pharmacy Consult (Consult Rx Perform Med Rec) 1 each MISCELLANE ONCE PRN PRN Reason: Consult order Sodium Chloride (0.9 % Sodium Chloride Flush 3 Ml Syringe) 3 ml IVFLUSH QSHIFT [facility] Last Admin: 08/13/22 09:13 Dose: 3 ml Tramadol HCl (Tramadol Hcl 50 Mg Tablet) 25 mg PO TID [facility] Last Admin: 08/13/22 14:47 Dose: 25 mg Vitamin D (Cholecalciferol (Vitamin D3) 25 Mcg Tablet) 25 mcg PO DAILY@1200 [facility] Last Admin: 08/13/22 11:30 Dose: 25 mcg Home Medications Medication Instructions Recorded Confirmed Last Taken Type acetaminophen 325 mg tablet 650 mg PO Q4H PRN Fever Or Pain 08/12/22 08/12/22 08/10/22 History albuterol sulfate 90 mcg/actuation 2 puff inhalation Q4H PRN 08/12/22 08/12/22 Unknown History aerosol inhaler (ProAir HFA) Shortness Of Breath Or Wheezing apixaban 5 mg tablet (Eliquis) 5 mg PO BID 08/12/22 08/12/22 08/12/22 09:00 History ascorbic acid (vitamin C) 500 mg 500 mg PO DAILY@1200 08/12/22 08/12/22 08/12/22 12:00 History tablet atorvastatin 20 mg tablet 20 mg PO BEDTIME 08/12/22 08/12/22 08/11/22 History calcium carbonate 500 mg calcium 500 mg PO DAILY@1200 08/12/22 08/12/22 08/12/22 12:00 History (1,250 mg) tablet (Oyster Shell Calcium) cholecalciferol (vitamin D3) 25 25 mcg PO DAILY@1200 08/12/22 08/12/22 08/12/22 12:00 History mcg (1,000 unit) tablet clopidogrel 75 mg tablet 75 mg PO DAILY 08/12/22 08/12/22 08/12/22 History diltiazem HCl 240 mg 240 mg PO DAILY 08/12/22 08/12/22 08/12/22 History capsule,extended release 24 hr estradiol 0.01% (0.1 mg/gram) 1 g vaginal MOWEFR 08/12/22 08/12/22 08/11/22 History vaginal cream ferrous sulfate 325 mg (65 mg 325 mg PO DAILY@1200 08/12/22 08/12/22 08/12/22 12:00 History iron) tablet fluticasone fur. 100 mcg-umeclid 1 inh inhalation DAILY@0800 08/12/22 08/12/22 08/12/22 History 62.5 mcg-vilant 25 mcg inhalat.powder (Trelegy Ellipta) furosemide 40 mg tablet 40 mg PO BID@0600,1200 08/12/22 08/12/22 08/12/22 12:00 History hydralazine 25 mg tablet 25 mg PO TID 08/12/22 08/12/22 08/12/22 12:00 History levothyroxine 88 mcg tablet 88 mcg PO DAILY@0600 08/12/22 08/12/22 08/12/22 History lisinopril 40 mg tablet 40 mg PO DAILY 08/12/22 08/12/22 08/12/22 History multivitamin,tx-minerals 1 tab PO DAILY@1200 08/12/22 08/12/22 08/12/22 12:00 History omeprazole 20 mg capsule,delayed 20 mg PO DAILY@0630 08/12/22 08/12/22 08/12/22 History release polyvinyl alcohol 1.4 % eye drops 1 drp ophthalmic (eye) DAILY PRN 08/12/22 08/12/22 Unknown History (Artificial Tears (polyvinyl Dry Eye(S) alcohol)) sodium chloride 1,000 mg soluble 1,000 mg PO BID 08/12/22 08/12/22 08/12/22 08:00 History tablet tramadol 50 mg tablet 25 mg PO TID 08/12/22 08/12/22 08/12/22 14:00 History Physical Exam Vital Signs: Last Vital Signs Temp 99.0 F 08/13/22 10:19 Pulse 75 08/13/22 10:19 Resp 16 08/13/22 10:19 BP 158/70 H 08/13/22 10:19 Pulse Ox 94 08/13/22 10:19 O2 Del Method 08/13/22 10:19 O2 Flow Rate 1.0 08/13/22 10:19 BMI result Body Mass Index 24.0 Const Other: /Frail elderly woman in no distress; constant involuntary movements of feet, legs and hands HEENT Other: Dry MM erythema around mouth Neck Other: Normal Chest Other: Crackles Cardio Other: No JVD on exam RRR, no S3 GI Other: soft, nondistended, nontender, normal sounds Extrem Other: 1 plus pretib edema Results Lab Results Result Diagrams: 08/13/22 06:15 08/13/22 06:14 Lab results: Chemistry 08/12/22 08/13/22 12:58 06:14 Sodium 124 L 127 L Potassium 3.9 3.7 Carbon Dioxide 27 24 BUN 11 12 Creatinine 0.71 0.68 Calcium 8.4 8.4 Hematology 08/12/22 08/13/22 12:58 06:15 WBC 13.0 H 20.8 H Hgb 11.4 L 11.0 L Plt Count 235 231 Urinalysis 08/12/22 13:21 Urine Color Yellow Urine Appearance Clear Urine pH 6.5 Ur Specific Menan 1.010 Urine Protein Negative Urine Glucose (UA) Negative Urine Ketones Negative Urine Blood Negative Urine Nitrite Negative Ur Leukocyte Esterase Negative Urine Studies 08/12/22 13:21 Urine Osmolality 310 L Assessment and Plan (1) Hyponatremia with decreased serum osmolality: Status: Acute (2) Pulmonary hypertension: Status: Acute (3) Influenza A: Status: Acute (4) Lung mass: Status: Acute Plan Purnima is an 86 yo woman with COPD, pulm hypertension, HTN and possible heart failure (don't see recent echo) who presents with influenza and weakness and is found to have a mass-like consolidation on CXR. ON admission her sodium is 124. She was on lasix prior to admission and possibly sodium tablets though I have not confirmed this history and pt ?reliable historian 1. Hyponatremia: though tempting to dx SIADH given lung findings on imaging, ddx includes HF related nonosmotic stimulation of ADH. Cannot dx SIADH in setting of heart failure and in presence of diuretic effect. Sodium is improving Recommend: In this setting of pulm HTN and cardiac issues, would NOT Use sodium tablets For now, hold diuretics and continue fluid restricting Sodium is improving and she is currently relatively asymptomatic with this. Check TSH and am cortisol tomorrow am Ok to continue lisinopril for HTN Serial q 8 hr sodium levels Time Spent With Patient Time: Total time managing care of this patient today ____ minutes. Procedures Date of Service Date of Service: 08/13/22
[2022-08-13] MEDS: Azithromycin 500 MG in 0.9 % Sodium Chloride 250 ML 125 MG IV (15:56)
[2022-08-13] MEDS: Atorvastatin Calcium 20 MG TABLET PO (20:52)
[2022-08-13] MEDS: Apixaban 5 MG TABLET PO (20:53)
[2022-08-14 03:58] VITALS: BP 123/85; PULSE 65; RESP 16; TEMP 36.1; O2SAT 93
[2022-08-14 06:15] LABS: Anion Gap 13 (12-20); Blood Urea Nitrogen 23 mg/dL (9-16); Calcium 8.5 mg/dL (8.4-10.2); Carbon Dioxide 25 mmol/L (22-29); Chloride 91 mmol/L (96-108); Creatinine Clr Calc Pharmacy 41.6; Estimated Glomerular Filt Rate > 60; Glucose Random 98 mg/dL (60-115); Potassium 4.1 mmol/L (3.3-5.1); Sodium 125 mmol/L (135-145)
[2022-08-14] MEDS: Furosemide 40 MG TABLET PO ×2 (06:15→11:38)
[2022-08-14] MEDS: Levothyroxine Sodium 88 MCG TABLET PO (06:15)
[2022-08-14] MEDS: Omeprazole 20 MG CAPSULE.DR PO (06:15)
[2022-08-14 08:00] VITALS: BP 125/86; PULSE 68; RESP 18; TEMP 36.6
[2022-08-14] MEDS: traMADoL HCL 50 MG TABLET 25 MG PO ×3 (09:44→21:45)
[2022-08-14] MEDS: hydrALAZINE HCl 25 MG TABLET PO ×3 (09:45→21:44)
[2022-08-14] MEDS: Apixaban 5 MG TABLET PO ×2 (09:45→21:44)
[2022-08-14] MEDS: dilTIAZem HCL CD 240 MG CAP.ER.DEG PO (09:45)
[2022-08-14] MEDS: lisinopriL 40 MG TABLET PO (09:45)
[2022-08-14] MEDS: 0.9 % Sodium Chloride Flush 3 ML SYRINGE IVFLUSH ×3 (09:46→21:46)
[2022-08-14] MEDS: Clopidogrel Bisulfate 75 MG TABLET PO (09:46)
--- NOTE | 2022-08-14 10:30 | PM.PNNEP ---
Subjective Subjective Date of Service: 08/14/22 Interval history: Seen and examined, event noted Physical Exam Vital Signs: Vital Signs: Last Vital Signs Temp 96.9 F 08/14/22 03:58 Pulse 65 08/14/22 03:58 Resp 16 08/14/22 03:58 BP 123/85 08/14/22 03:58 Pulse Ox 93 08/14/22 03:58 O2 Del Method 08/14/22 03:58 O2 Flow Rate 4 08/14/22 03:58 BMI result Body Mass Index 24.0 Const: Other: /Frail elderly woman in no distress; constant involuntary movements of feet, legs and hands HEENT: Other: Dry MM erythema around mouth Neck: Other: Normal Chest: Other: Crackles Cardio: Other: No JVD on exam RRR, no S3 GI: Other: soft, nondistended, nontender, normal sounds Extrem: Other: 1 plus pretib edema Objective Data Labs CBC & Chem 7: 08/13/22 06:15 08/14/22 05:35 Labs: Laboratory Results - last 24 hr 08/14/22 05:35 Sodium 125 L Potassium 4.1 Chloride 91 L Carbon Dioxide 25 Anion Gap 13 BUN 23 H D Creatinine 0.87 Estim Creat Clear Calc 41.6 Estimated GFR > 60 Random Glucose 98 Calcium 8.5 Microbiology Microbiology Results: Microbiology 08/12/22 15:30 Blood - Venous Blood Culture - Preliminary No growth after 24 hours. 08/12/22 15:30 Blood - Venous Blood Culture - Preliminary No growth after 24 hours. Procedures Date of Service Date of Service: 08/14/22 Assessment & Plan Assessment and plan (1) Hyponatremia with decreased serum osmolality: Status: Acute (2) Pulmonary hypertension: Status: Acute (3) Influenza A: Status: Acute (4) Lung mass: Status: Acute Plan Purnima is an 86 yo woman with COPD, pulm hypertension, HTN and possible heart failure (don't see recent echo) who presents with influenza and weakness and is found to have a mass-like consolidation on CXR. ON admission her sodium is 124. She was on lasix prior to admission and sodium tablets HYpoNa and ques vol status: dose not look Hypervol so euvolemic vs hypovolemic HypoNa DDx: need to r/o hypothyroid and adrena insuff Urine studies suggest Euvolemic Uosm > Sosm and Mariam > 20) but ques was she on lasix or got IV cintrast which can interfere with Urine studies On adm shs is on bith lasix and Salt tabs: this would suggest prone to hypervol and has underlying SIADH REC: repeat urne studies and check both serum UAL and UUA and check TSH and am cortisl level( I ordered); give 1 dose of urea 15 gm for now and cont 1500 ml fluid restriction; get card echo; cont ot hold both lasix and slat tabs; avoid too rapid correction of SNa ( goal is less than 6-8 meq/24 hrs)--check q 8hrs Will follow with team Time Spent With Patient Time: Total time managing care of this patient today ____ minutes. Progress Note: Quality Stroke Does the patient have a stroke diagnosis?: No
[2022-08-14 11:24] LABS: Uric Acid 8.3 mg/dL (2.4-5.7)
[2022-08-14] MEDS: Multivitamin TABLET 1 TAB PO (11:38)
[2022-08-14] MEDS: Ferrous Sulfate 324 MG TABLET.DR PO (11:39)
[2022-08-14] MEDS: Cholecalciferol (Vitamin D3) 25 MCG TABLET PO (11:39)
[2022-08-14] MEDS: Ascorbic Acid 500 MG TABLET PO (11:39)
[2022-08-14] MEDS: Urea 15 GM POWDER PO (11:39)
--- NOTE | 2022-08-14 11:46 | HO.PM.IMPN ---
Subjective Subjective Date of Service: 08/14/22 Review of Systems Sepsis secondary to community-acquired pneumonia and flu Physical Exam Vital Signs: Vital Signs: Last Vital Signs Temp 96.9 F 08/14/22 03:58 Pulse 65 08/14/22 03:58 Resp 16 08/14/22 03:58 BP 123/85 08/14/22 03:58 Pulse Ox 93 08/14/22 03:58 O2 Del Method 08/14/22 03:58 O2 Flow Rate 4 08/14/22 03:58 BMI result Body Mass Index 24.0 Appearing in no acute distress lung sounds are clear to auscultation heart regular rate rhythm, clear S1, S2 positive bowel sounds, abdomen is soft, nontender neuro patient is alert x3, no focal deficits Objective Data Active Medications Acetaminophen (Acetaminophen 325 Mg Tablet) 650 mg PO Q6H PRN PRN Reason: Pain, Mild (Pain Scale 1-3) Last Admin: 08/12/22 17:46 Dose: 650 mg Documented By: AMBER Albuterol Sulfate (Albuterol Sulfate 90 Mcg 8 Gm Inhaler) 2 puff INHALE Q4H PRN PRN Reason: Shortness Of Breath Or Wheezing Apixaban (Apixaban 5 Mg Tablet) 5 mg PO BID [facility] Last Admin: 08/14/22 09:45 Dose: 5 mg Documented By: JACQUIE Artificial Tears (Artificial Tears 15 Ml Drops) 1 drop EYE-BOTH DAILY PRN PRN Reason: Dry Eye(S) Ascorbic Acid (Ascorbic Acid 500 Mg Tablet) 500 mg PO DAILY@1200 [facility] Last Admin: 08/14/22 11:39 Dose: 500 mg Documented By: JACQUIE Atorvastatin Calcium (Atorvastatin Calcium 20 Mg Tablet) 20 mg PO BEDTIME [facility] Last Admin: 08/13/22 20:52 Dose: 20 mg Documented By: OZORALB Calcium Carbonate (Calcium Carbonate 500 Mg Tablet) 500 mg PO DAILY@1200 [facility] Last Admin: 08/14/22 11:38 Dose: 500 mg Documented By: JACQUIE Clopidogrel Bisulfate (Clopidogrel Bisulfate 75 Mg Tablet) 75 mg PO DAILY [facility] Last Admin: 08/14/22 09:46 Dose: 75 mg Documented By: JACQUIE Diltiazem HCl (Diltiazem Hcl Cd 240 Mg Cap.Er.Deg) 240 mg PO DAILY [facility]; Protocol Last Admin: 08/14/22 09:45 Dose: 240 mg Documented By: JACQUIE Ferrous Sulfate (Ferrous Sulfate 324 Mg Tablet.) 324 mg PO DAILY@1200 [facility] Last Admin: 08/14/22 11:39 Dose: 324 mg Documented By: JACQUIE Furosemide (Furosemide 40 Mg Tablet) 40 mg PO BID@0600,1200 [facility]; Protocol Last Admin: 08/14/22 11:38 Dose: 40 mg Documented By: JACQUIE Hydralazine HCl (Hydralazine Hcl 25 Mg Tablet) 25 mg PO TID [facility]; Protocol Last Admin: 08/14/22 09:45 Dose: 25 mg Documented By: JACQUIE Ceftriaxone Sodium 1 gm/ (Sodium Chloride) 50 mls @ 100 mls/hr IV Q24H [facility] Last Infusion: 08/13/22 16:00 Dose: 0 mls/hr Documented By: JACQUIE Azithromycin 500 mg/ Sodium (Chloride) 250 mls @ 125 mls/hr IV Q24H [facility] Last Infusion: 08/13/22 18:05 Dose: 0 mls/hr Documented By: JACQUIE Levothyroxine Sodium (Levothyroxine Sodium 88 Mcg Tablet) 88 mcg PO DAILY@0600 [facility] Last Admin: 08/14/22 06:15 Dose: 88 mcg Documented By: EVANS Lisinopril (Lisinopril 40 Mg Tablet) 40 mg PO DAILY [facility]; Protocol Last Admin: 08/14/22 09:45 Dose: 40 mg Documented By: JACQUIE Multivitamins/Vitamin C (Multivitamin Tablet) 1 tab PO DAILY@1200 [facility] Last Admin: 08/14/22 11:38 Dose: 1 tab Documented By: JACQUIE Non-Formulary Medication (Gabhxuqlydy-Jqlroolzl-Nyjasvbf [Trelegy Ellipta]) 1 inhalation INHALE DAILY@0800 [facility] Omeprazole (Omeprazole 20 Mg Capsule.) 20 mg PO DAILY@0630 [facility] Last Admin: 08/14/22 06:15 Dose: 20 mg Documented By: EVANS Ondansetron HCl (Ondansetron Hcl 4 Mg/2 Ml Vial) 4 mg IVPUSH Q8H PRN PRN Reason: Nausea and Vomiting Oseltamivir Phosphate (Oseltamivir Phosphate 75 Mg Capsule) 75 mg PO Q24H [facility] Stop: 08/17/22 14:01 Last Admin: 08/13/22 14:47 Dose: 75 mg Documented By: JACQUIE Oxycodone HCl (Oxycodone Hcl Immed Release 5 Mg Tablet) 5 mg PO Q6H PRN PRN Reason: Pain, Mild (Pain Scale 1-3) Last Admin: 08/12/22 17:47 Dose: 5 mg Documented By: AMBER Pharmacy Consult (Consult Rx Perform Med Rec) 1 each MISCELLANE ONCE PRN PRN Reason: Consult order Sodium Chloride (0.9 % Sodium Chloride Flush 3 Ml Syringe) 3 ml IVFLUSH QSHIFT [facility] Last Admin: 08/14/22 09:46 Dose: 3 ml Documented By: JACQUIE Tramadol HCl (Tramadol Hcl 50 Mg Tablet) 25 mg PO TID [facility] Last Admin: 08/14/22 09:44 Dose: 25 mg Documented By: JACQUIE Vitamin D (Cholecalciferol (Vitamin D3) 25 Mcg Tablet) 25 mcg PO DAILY@1200 [facility] Last Admin: 08/14/22 11:39 Dose: 25 mcg Documented By: JACQUIE Labs CBC & Chem 7: 08/13/22 06:15 08/14/22 05:35 Labs: Laboratory Results - last 24 hr 08/14/22 05:35 Anion Gap 13 Estim Creat Clear Calc 41.6 Estimated GFR > 60 Random Glucose 98 Uric Acid 8.3 H Calcium 8.5 Microbiology Microbiology Results: Microbiology 08/12/22 15:30 Blood Culture - Preliminary Blood - Venous No growth after 24 hours. 08/12/22 15:30 Blood Culture - Preliminary Blood - Venous No growth after 24 hours. Assessment and Plan (1) Influenza A: Status: Acute Plan 86 year old women admitted from assisted living facility with sepsis secondary to pneumonia and influenza A Sepsis secondary to CAP in influenza a Fever and leukocytosis, normal lactic acid Rocephin and azithromycin Continue supplemental oxygen as needed Tamiflu Hyponatremia. Improving ? SIADH vs hypovolemia 1.5L for 24 hours, no IV fluids One dose of Urea today, nephro to re-eval tomorrow Shoulder disclocation chronic Grade 2 diastolic dysfunction Continue Lasix b.i.d. Paroxysmal persistent atrial fibrillation Continue Eliquis, diltiazem Hypertension Stable blood pressure Continue home medications COPD no exacerbation Mental health continue home medications? GERD PPI Hypothyroidism Levothyroxine DVT prophylaxis with Milagros Attending Dr. Morales Full code Continue hospitalization for treatment of sepsis secondary to community-acquired pneumonia and hyponatremia Time Spent With Patient Time: Total time managing care of this patient today ____ minutes. Quality Stroke Does the patient have a stroke diagnosis?: No VTE Prior VTE?: No VTE Risk Level:: Medical - moderate - high VTE Device Contraindication: Treatment Not Indicated VTE Drug Contraindication: N/A - Med Ordered
--- NOTE | 2022-08-14 12:08 | P.PNOP_ITS ---
Subjective Subjective Date of Service: 08/14/22 Interval history: 86 yo female admitted to the medical service for PNA and flu. On admission she was experiencing right shoulder pain, xrays in the ED showed dislocated hemiarthroplasty of the right shoulder. The patient did not mention recent injury. Phone call was made to the rehab facility she resides in , the nurse decorating and assembly supervisor mentioned there had been no evidence of recent fall or injury, no c/o new onset right shoulder pain. While speaking with the patient today, she mentioned her right shoulder has been uncomfortable since a year post op. She did not see anyone for this pain at that time. She mentioned she continued to use the arm as tolerated and had adjusted just well. Physical Exam Vital Signs: Vital Signs: Last Vital Signs Temp 96.9 F 08/14/22 03:58 Pulse 65 08/14/22 03:58 Resp 16 08/14/22 03:58 BP 123/85 08/14/22 03:58 Pulse Ox 93 08/14/22 03:58 O2 Del Method 08/14/22 03:58 O2 Flow Rate 4 08/14/22 03:58 BMI result Body Mass Index 24.0 Const: General: cooperative, healthy appearing, comfortable and no acute d istress Extrem: Other: Right shoulder surgical scar well healed. There is bony abnormality which resembles anterior shoulder dislocation. She has good passive and active ROM to 45 abd to 90. NVI . Procedures Date of Service Date of Service: 08/14/22 Progress Note: A&P Assessment and plan (1) Chronic dislocation of right shoulder: Status: Acute Assessment and Plan: In the absence of recent injury or fall, there is reason to believe the dislocation is chronic. She continues to use the arm for daily activities as she has been for the last 5-6 years without any issue . No acute treatment needed. She will f.u prn. Time Spent With Patient Time: Total time managing care of this patient today ____ minutes. Quality Stroke Does the patient have a stroke diagnosis?: No VTE Prior VTE?: No VTE Risk Level:: Medical - moderate - high VTE Device Contraindication: Treatment Not Indicated VTE Drug Contraindication: N/A - Med Ordered
--- NOTE | 2022-08-14 13:09 | MHC.CLN ---
NUTRITION CONSULT FOR SKIN INTEGRITY. PATIENT WITH REDNESS TO BILATERAL BUTTOCKS. NO OPEN AREAS. DIET= 2 GRAM SODIUM, 1500 ML FR. FR DUE TO HYPONATREMIA WITH SIADH. NO ADDITIONAL NUTRITION INTERVENTIONS AT THIS TIME.
[2022-08-14] MEDS: Oseltamivir Phosphate 75 MG CAPSULE PO (14:14)
[2022-08-14] MEDS: cefTRIAXone sodium 1 GM in 0.9 % Sodium Chloride 50 ML IV (14:15)
--- NOTE | 2022-08-14 14:15 | MHC.CM.PN ---
PER MD ROUNDS, PT NOT MEDICALLY CLEARED TO DC DCP, RETURN TO [facility] VS BLS FOR TRANSPORT
[2022-08-14 14:47] LABS: Osmolality Urine 345 mosm/kg (373-1093)
[2022-08-14 15:50] VITALS: BP 142/63; PULSE 69; RESP 22; TEMP 36.9; O2SAT 92
[2022-08-14] MEDS: Azithromycin 500 MG in 0.9 % Sodium Chloride 250 ML 125 MG IV (16:16)
[2022-08-14] MEDS: oxyCODONE HCl Immed Release 5 MG TABLET PO (16:20)
[2022-08-14] MEDS: guaiFENesin DM 100/10/5 ML 5 ML SYRUP PO (17:12)
[2022-08-14 17:48] LABS: Uric Acid Urine Random 9.4 mg/dL
[2022-08-14 19:31] VITALS: BP 127/61; PULSE 67; RESP 16; TEMP 36.9; O2SAT 92
[2022-08-14] MEDS: Atorvastatin Calcium 20 MG TABLET PO (21:44)
[2022-08-15 00:49] LABS: Anion Gap 13 (12-20); Carbon Dioxide 27 mmol/L (22-29); Chloride 93 mmol/L (96-108); Sodium 129 mmol/L (135-145)
[2022-08-15 04:00] VITALS: BP 132/60; PULSE 62; RESP 20; TEMP 36; O2SAT 93
[2022-08-15] MEDS: Omeprazole 20 MG CAPSULE.DR PO (05:18)
[2022-08-15] MEDS: oxyCODONE HCl Immed Release 5 MG TABLET PO (05:18)
[2022-08-15] MEDS: Levothyroxine Sodium 88 MCG TABLET PO (05:20)
[2022-08-15] MEDS: Furosemide 40 MG TABLET PO (05:21)
[2022-08-15 07:05] LABS: Anion Gap 15 (12-20); Blood Urea Nitrogen 31 mg/dL (9-16); Calcium 8.5 mg/dL (8.4-10.2); Carbon Dioxide 26 mmol/L (22-29); Chloride 94 mmol/L (96-108); Creatinine Clr Calc Pharmacy 49.5; Estimated Glomerular Filt Rate > 60; Glucose Random 105 mg/dL (60-115); Potassium 3.7 mmol/L (3.3-5.1); Sodium 131 mmol/L (135-145)
[2022-08-15 07:27] LABS: Cortisol Random 16.8 ug/dL
[2022-08-15 07:31] VITALS: BP 178/77; PULSE 68; RESP 20; TEMP 36.1; O2SAT 92
[2022-08-15 07:31] LABS: TSH reflex Free T4 1.77 uIU/mL (0.32-4.0)
[2022-08-15] MEDS: Apixaban 5 MG TABLET PO ×2 (10:05→21:14)
[2022-08-15] MEDS: traMADoL HCL 50 MG TABLET 25 MG PO ×3 (10:05→21:13)
[2022-08-15] MEDS: hydrALAZINE HCl 25 MG TABLET PO ×3 (10:05→21:14)
[2022-08-15] MEDS: Clopidogrel Bisulfate 75 MG TABLET PO (10:05)
[2022-08-15] MEDS: lisinopriL 40 MG TABLET PO (10:05)
[2022-08-15] MEDS: dilTIAZem HCL CD 240 MG CAP.ER.DEG PO (10:07)
[2022-08-15] MEDS: 0.9 % Sodium Chloride Flush 3 ML SYRINGE IVFLUSH ×3 (10:07→21:15)
--- NOTE | 2022-08-15 10:35 | PM.PNNEP ---
Subjective Subjective Date of Service: 08/15/22 Interval history: Seen and examined, event noted Physical Exam Vital Signs: Vital Signs: Last Vital Signs Temp 96.9 F 08/15/22 07:31 Pulse 68 08/15/22 07:31 Resp 20 08/15/22 07:31 BP 178/77 H 08/15/22 07:31 Pulse Ox 92 08/15/22 07:31 O2 Del Method 08/15/22 07:31 O2 Flow Rate 4 08/15/22 07:31 BMI result Body Mass Index 24.0 Const: Other: /Frail elderly woman in no distress; constant involuntary movements of feet, legs and hands HEENT: Other: Dry MM erythema around mouth Neck: Other: Normal Chest: Other: Crackles Cardio: Other: No JVD on exam RRR, no S3 GI: Other: soft, nondistended, nontender, normal sounds Extrem: Other: 1 plus pretib edema Objective Data Labs CBC & Chem 7: 08/13/22 06:15 08/15/22 05:37 Labs: Laboratory Results - last 24 hr 08/14/22 08/14/22 08/14/22 05:35 13:00 13:00 Sodium Potassium Chloride Carbon Dioxide Anion Gap BUN Creatinine Estim Creat Clear Calc Estimated GFR Random Glucose Uric Acid 8.3 H Calcium TSH Random Cortisol Urine Osmolality 345 L Ur Random Sodium 24.0 Ur Random Uric Acid 08/14/22 08/15/22 08/15/22 17:12 00:22 05:37 Sodium 129 L 131 L Potassium 4.0 3.7 Chloride 93 L 94 L Carbon Dioxide 27 26 Anion Gap 13 15 BUN 31 H Creatinine 0.73 Estim Creat Clear Calc 49.5 Estimated GFR > 60 Random Glucose 105 Uric Acid Calcium 8.5 TSH Random Cortisol Urine Osmolality Ur Random Sodium Ur Random Uric Acid 9.4 08/15/22 08/15/22 05:37 05:37 Sodium Potassium Chloride Carbon Dioxide Anion Gap BUN Creatinine Estim Creat Clear Calc Estimated GFR Random Glucose Uric Acid Calcium TSH 1.77 Random Cortisol 16.8 Urine Osmolality Ur Random Sodium Ur Random Uric Acid Microbiology Microbiology Results: Microbiology 08/12/22 15:30 Blood - Venous Blood Culture - Preliminary No growth after 48 hours. 08/12/22 15:30 Blood - Venous Blood Culture - Preliminary No growth after 48 hours. Procedures Date of Service Date of Service: 08/15/22 Assessment & Plan Assessment and plan (1) Hyponatremia with decreased serum osmolality: Status: Acute (2) Pulmonary hypertension: Status: Acute (3) Influenza A: Status: Acute (4) Lung mass: Status: Acute Plan Purnima is an 86 yo woman with COPD, pulm hypertension, HTN and possible heart failure (don't see recent echo) who presents with influenza and weakness and is found to have a mass-like consolidation on CXR. ON admission her sodium is 124. She was on lasix prior to admission and sodium tablets HYpoNa and ques vol status: dose not look Hypervol so euvolemic vs hypovolemic HypoNa DDx: need to r/o hypothyroid and adrena insuff--labs ordered Urine studies suggest Euvolemic ( SIADH) Uosm > Sosm and Mariam > 20) AND the repeat Urine studies still suggest this despite serum UA elevated ( goes against SIADH) On adm shs is on both lasix and Salt tabs: this would suggest prone to hypervol and has underlying SIADH SNa 131 trhis am is good news Labile HTN REC: cont to hold NaCL tabs and Urea, recheck SNa in am and then will decide on what if anytjing she needs chronically Will follow with team Time Spent With Patient Time: Total time managing care of this patient today ____ minutes. Progress Note: Quality Stroke Does the patient have a stroke diagnosis?: No
--- NOTE | 2022-08-15 12:45 | PM.IMHP ---
Review of Systems Review of Systems: Denies any recent fever chills or decrease in appetite respiratory denies any shortness of breath coverage production cardiovascular is adjustment of any PND or edema gastrointestinal denies any dysphagia abdominal pain nausea vomiting or diarrhea genitourinary denies any dysuria frequency or hematuria musculoskeletal denies any joint pain or swelling neuropsych denies any weakness or seizures all other systems reviewed are negative [facility] Medical History (Updated 08/14/22 @ 12:10 by Morena Gallo PA-C) Atrial fibrillation Carotid stenosis Chronic diastolic heart failure COPD (chronic obstructive pulmonary disease) CVA (cerebral vascular accident) Hypertension Hypothyroidism Mental health disorder Osteoarthritis Shoulder symptoms with history of shoulder arthroplasty Surgical History (Updated 08/14/22 @ 11:45 by Mitzi Franco NP) H/O carotid endarterectomy H/O knee surgery H/O shoulder surgery Social History Household Members: Other Household Members Other:: lives in [facility] Home Housing: Assisted Living Facility Do you presently have visiting nurse or other home services: Yes Patient Tobacco Use Status: Current everyday Tobacco user Tobacco use type: Cigarette Cigarettes Per Day: 10 Advance Directives Date on File: 08/13/22 service: No Current occupational status: retired [employer] Allergies Allergy/AdvReac Type Severity Reaction Status Date / Time No Known Allergies Allergy Unverified 05/20/20 17:32 Active Medications: Current Medications Acetaminophen (Acetaminophen 325 Mg Tablet) 650 mg PO Q6H PRN PRN Reason: Pain, Mild (Pain Scale 1-3) Last Admin: 08/12/22 17:46 Dose: 650 mg Albuterol Sulfate (Albuterol Sulfate 90 Mcg 8 Gm Inhaler) 2 puff INHALE Q4H PRN PRN Reason: Shortness Of Breath Or Wheezing Albuterol/Ipratropium (Albuterol/Iprat 2.5/0.5mg 3 Ml Ampul.Neb) 3 ml INHALE RQ4H PRN PRN Reason: Shortness of Breath/Wheezing Apixaban (Apixaban 5 Mg Tablet) 5 mg PO BID [facility] Last Admin: 08/15/22 10:05 Dose: 5 mg Artificial Tears (Artificial Tears 15 Ml Drops) 1 drop EYE-BOTH DAILY PRN PRN Reason: Dry Eye(S) Ascorbic Acid (Ascorbic Acid 500 Mg Tablet) 500 mg PO DAILY@1200 [facility] Last Admin: 08/14/22 11:39 Dose: 500 mg Atorvastatin Calcium (Atorvastatin Calcium 20 Mg Tablet) 20 mg PO BEDTIME [facility] Last Admin: 08/14/22 21:44 Dose: 20 mg Calcium Carbonate (Calcium Carbonate 500 Mg Tablet) 500 mg PO DAILY@1200 [facility] Last Admin: 08/14/22 11:38 Dose: 500 mg Clopidogrel Bisulfate (Clopidogrel Bisulfate 75 Mg Tablet) 75 mg PO DAILY [facility] Last Admin: 08/15/22 10:05 Dose: 75 mg Diltiazem HCl (Diltiazem Hcl Cd 240 Mg Cap.Er.Deg) 240 mg PO DAILY [facility]; Protocol Last Admin: 08/15/22 10:07 Dose: 240 mg Ferrous Sulfate (Ferrous Sulfate 324 Mg Tablet.Dr) 324 mg PO DAILY@1200 [facility] Last Admin: 08/14/22 11:39 Dose: 324 mg Fluticasone/Vilanterol (Fluticasone/Vilanterol 100/25 Blst.W.Dev) 1 puff INHALE RDAILY [facility] Furosemide (Furosemide 40 Mg Tablet) 40 mg PO BID@0600,1200 [facility]; Protocol Last Admin: 08/15/22 05:21 Dose: 40 mg Guaifenesin/Dextromethorphan (Guaifenesin Dm 100/10/5 Ml 5 Ml Syrup) 5 ml PO Q6H PRN PRN Reason: cough Last Admin: 08/14/22 17:12 Dose: 5 ml Hydralazine HCl (Hydralazine Hcl 25 Mg Tablet) 25 mg PO TID [facility]; Protocol Last Admin: 08/15/22 10:05 Dose: 25 mg Ceftriaxone Sodium 1 gm/ (Sodium Chloride) 50 mls @ 100 mls/hr IV Q24H [facility] Last Infusion: 08/14/22 15:01 Dose: Infused Azithromycin 500 mg/ Sodium (Chloride) 250 mls @ 125 mls/hr IV Q24H [facility] Last Infusion: 08/14/22 18:22 Dose: Infused Levothyroxine Sodium (Levothyroxine Sodium 88 Mcg Tablet) 88 mcg PO DAILY@0600 [facility] Last Admin: 08/15/22 05:20 Dose: 88 mcg Lisinopril (Lisinopril 40 Mg Tablet) 40 mg PO DAILY [facility]; Protocol Last Admin: 08/15/22 10:05 Dose: 40 mg Multivitamins/Vitamin C (Multivitamin Tablet) 1 tab PO DAILY@1200 [facility] Last Admin: 08/14/22 11:38 Dose: 1 tab Omeprazole (Omeprazole 20 Mg Capsule.Dr) 20 mg PO DAILY@0630 [facility] Last Admin: 08/15/22 05:18 Dose: 20 mg Ondansetron HCl (Ondansetron Hcl 4 Mg/2 Ml Vial) 4 mg IVPUSH Q8H PRN PRN Reason: Nausea and Vomiting Oseltamivir Phosphate (Oseltamivir Phosphate 75 Mg Capsule) 75 mg PO Q24H [facility] Stop: 08/17/22 14:01 Last Admin: 08/14/22 14:14 Dose: 75 mg Oxycodone HCl (Oxycodone Hcl Immed Release 5 Mg Tablet) 5 mg PO Q6H PRN PRN Reason: Pain, Mild (Pain Scale 1-3) Last Admin: 08/15/22 05:18 Dose: 5 mg Pharmacy Consult (Consult Rx Perform Med Rec) 1 each MISCELLANE ONCE PRN PRN Reason: Consult order Sodium Chloride (0.9 % Sodium Chloride Flush 3 Ml Syringe) 3 ml IVFLUSH QSHIFT [facility] Last Admin: 08/15/22 10:07 Dose: 3 ml Tiotropium [place] (Tiotropium [place] 18 Mcg Cap.W.Dev) 1 puff INHALE RDAILY [facility] Tramadol HCl (Tramadol Hcl 50 Mg Tablet) 25 mg PO TID [facility] Last Admin: 08/15/22 10:05 Dose: 25 mg Vitamin D (Cholecalciferol (Vitamin D3) 25 Mcg Tablet) 25 mcg PO DAILY@1200 [facility] Last Admin: 08/14/22 11:39 Dose: 25 mcg Home Medications Medication Instructions Recorded Confirmed Last Taken Type acetaminophen 325 mg tablet 650 mg PO Q4H PRN Fever Or Pain 08/12/22 08/12/22 08/10/22 History albuterol sulfate 90 mcg/actuation 2 puff inhalation Q4H PRN 08/12/22 08/12/22 Unknown History aerosol inhaler (ProAir HFA) Shortness Of Breath Or Wheezing apixaban 5 mg tablet (Eliquis) 5 mg PO BID 08/12/22 08/12/22 08/12/22 09:00 History ascorbic acid (vitamin C) 500 mg 500 mg PO DAILY@1200 08/12/22 08/12/22 08/12/22 12:00 History tablet atorvastatin 20 mg tablet 20 mg PO BEDTIME 08/12/22 08/12/22 08/11/22 History calcium carbonate 500 mg calcium 500 mg PO DAILY@1200 08/12/22 08/12/22 08/12/22 12:00 History (1,250 mg) tablet (Oyster Shell Calcium) cholecalciferol (vitamin D3) 25 25 mcg PO DAILY@1200 08/12/22 08/12/22 08/12/22 12:00 History mcg (1,000 unit) tablet clopidogrel 75 mg tablet 75 mg PO DAILY 08/12/22 08/12/22 08/12/22 History diltiazem HCl 240 mg 240 mg PO DAILY 08/12/22 08/12/22 08/12/22 History capsule,extended release 24 hr estradiol 0.01% (0.1 mg/gram) 1 g vaginal MOWEFR 08/12/22 08/12/22 08/11/22 History vaginal cream ferrous sulfate 325 mg (65 mg 325 mg PO DAILY@1200 08/12/22 08/12/22 08/12/22 12:00 History iron) tablet fluticasone fur. 100 mcg-umeclid 1 inh inhalation DAILY@0800 08/12/22 08/12/22 08/12/22 History 62.5 mcg-vilant 25 mcg inhalat.powder (Trelegy Ellipta) furosemide 40 mg tablet 40 mg PO BID@0600,1200 08/12/22 08/12/22 08/12/22 12:00 History hydralazine 25 mg tablet 25 mg PO TID 08/12/22 08/12/22 08/12/22 12:00 History levothyroxine 88 mcg tablet 88 mcg PO DAILY@0600 08/12/22 08/12/22 08/12/22 History lisinopril 40 mg tablet 40 mg PO DAILY 08/12/22 08/12/22 08/12/22 History multivitamin,tx-minerals 1 tab PO DAILY@1200 08/12/22 08/12/22 08/12/22 12:00 History omeprazole 20 mg capsule,delayed 20 mg PO DAILY@0630 08/12/22 08/12/22 08/12/22 History release polyvinyl alcohol 1.4 % eye drops 1 drp ophthalmic (eye) DAILY PRN 08/12/22 08/12/22 Unknown History (Artificial Tears (polyvinyl Dry Eye(S) alcohol)) sodium chloride 1,000 mg soluble 1,000 mg PO BID 08/12/22 08/12/22 08/12/22 08:00 History tablet tramadol 50 mg tablet 25 mg PO TID 08/12/22 08/12/22 08/12/22 14:00 History Physical Exam Vital Signs and Narrative: Vital Signs: Last Vital Signs Temp 96.9 F 08/15/22 07:31 Pulse 68 08/15/22 07:31 Resp 20 08/15/22 07:31 BP 178/77 H 08/15/22 07:31 Pulse Ox 92 08/15/22 07:31 O2 Del Method 08/15/22 07:31 O2 Flow Rate 4 08/15/22 07:31 BMI result Body Mass Index 24.0 Appearing in no acute distress head is normocephalic atraumatic eyes pupils are PERRLA sclera is anicteric mouth throat mucous membranes are intact and moist neck is supple no lymphadenopathy, no JVD noted lung sounds are clear to auscultation heart regular rate rhythm, clear S1, S2 positive bowel sounds, abdomen is soft, nontender neuro patient is alert x3, no focal deficits Results Labs CBC and Chem 7: 08/13/22 06:15 08/15/22 05:37 Labs: Laboratory Results - last 24 hr 08/14/22 08/14/22 08/14/22 13:00 13:00 17:12 Anion Gap Estim Creat Clear Calc Estimated GFR Random Glucose Calcium TSH Random Cortisol Urine Osmolality 345 L Ur Random Sodium 24.0 Ur Random Uric Acid 9.4 08/15/22 08/15/22 08/15/22 00:22 05:37 05:37 Anion Gap 13 15 Estim Creat Clear Calc 49.5 Estimated GFR > 60 Random Glucose 105 Calcium 8.5 TSH 1.77 Random Cortisol Urine Osmolality Ur Random Sodium Ur Random Uric Acid 08/15/22 05:37 Anion Gap Estim Creat Clear Calc Estimated GFR Random Glucose Calcium TSH Random Cortisol 16.8 Urine Osmolality Ur Random Sodium Ur Random Uric Acid Imaging Radiologist's Impressions: Impressions Chest X-Ray 08/14/22 22:30 IMPRESSION: Interval increase in prominence of airspace disease of the lateral left lung and left lung base. Follow-up imaging recommended status post treatment to ensure resolution. Assessment and Plan (1) Chronic dislocation of right shoulder: Status: Acute (2) Hyponatremia with decreased serum osmolality: Status: Acute Plan 86 year old women admitted from assisted living facility with sepsis secondary to pneumonia and influenza A Sepsis secondary to CAP in influenza a Fever and leukocytosis, normal lactic acid Rocephin and azithromycin Continue supplemental oxygen as needed Tamiflu Hyponatremia.? Improving ? SIADH vs hypovolemia 1.5L for 24 hours, no IV fluids One dose of Urea today, nephro to re-eval tomorrow Shoulder disclocation chronic Grade 2 diastolic dysfunction Continue Lasix b.i.d. Paroxysmal persistent atrial fibrillation Continue Eliquis, diltiazem Hypertension Stable blood pressure Continue home medications COPD no exacerbation Mental health continue home medications? GERD PPI Hypothyroidism Levothyroxine DVT prophylaxis with Milagros Attending Dr. Morales Full code Time Spent With Patient Time: Total time managing care of this patient today ____ minutes. Quality Stroke Does the patient have a stroke diagnosis?: No VTE Prior VTE?: No VTE Risk Level:: Medical - moderate - high VTE Device Contraindication: Treatment Not Indicated VTE Drug Contraindication: N/A - Med Ordered
[2022-08-15] MEDS: Cholecalciferol (Vitamin D3) 25 MCG TABLET PO (12:48)
[2022-08-15] MEDS: Multivitamin TABLET 1 TAB PO (12:48)
[2022-08-15] MEDS: Oseltamivir Phosphate 75 MG CAPSULE PO (12:48)
[2022-08-15] MEDS: Ferrous Sulfate 324 MG TABLET.DR PO (12:48)
[2022-08-15] MEDS: Ascorbic Acid 500 MG TABLET PO (12:48)
--- NOTE | 2022-08-15 13:19 | P.PNIM_ITS ---
Subjective Subjective Date of Service: 08/15/22 Review of Systems Sepsis secondary to community-acquired pneumonia and flu Feeling better Physical Exam Vital Signs: Vital Signs: Last Vital Signs Temp 96.9 F 08/15/22 07:31 Pulse 68 08/15/22 07:31 Resp 20 08/15/22 07:31 BP 178/77 H 08/15/22 07:31 Pulse Ox 92 08/15/22 07:31 O2 Del Method 08/15/22 07:31 O2 Flow Rate 4 08/15/22 07:31 BMI result Body Mass Index 24.0 Appearing in no acute distress lung sounds are clear to auscultation heart regular rate rhythm, clear S1, S2 positive bowel sounds, abdomen is soft, nontender neuro patient is alert x3, no focal deficits Objective Data Active Medications Acetaminophen (Acetaminophen 325 Mg Tablet) 650 mg PO Q6H PRN PRN Reason: Pain, Mild (Pain Scale 1-3) Last Admin: 08/12/22 17:46 Dose: 650 mg Documented By: AMBER Albuterol Sulfate (Albuterol Sulfate 90 Mcg 8 Gm Inhaler) 2 puff INHALE Q4H PRN PRN Reason: Shortness Of Breath Or Wheezing Albuterol/Ipratropium (Albuterol/Iprat 2.5/0.5mg 3 Ml Ampul.Neb) 3 ml INHALE RQ4H PRN PRN Reason: Shortness of Breath/Wheezing Apixaban (Apixaban 5 Mg Tablet) 5 mg PO BID [facility] Last Admin: 08/15/22 10:05 Dose: 5 mg Documented By: BALWINDER Artificial Tears (Artificial Tears 15 Ml Drops) 1 drop EYE-BOTH DAILY PRN PRN Reason: Dry Eye(S) Ascorbic Acid (Ascorbic Acid 500 Mg Tablet) 500 mg PO DAILY@1200 [facility] Last Admin: 08/15/22 12:48 Dose: 500 mg Documented By: BALWINDER Atorvastatin Calcium (Atorvastatin Calcium 20 Mg Tablet) 20 mg PO BEDTIME [facility] Last Admin: 08/14/22 21:44 Dose: 20 mg Documented By: EVANS Calcium Carbonate (Calcium Carbonate 500 Mg Tablet) 500 mg PO DAILY@1200 [facility] Last Admin: 08/15/22 12:48 Dose: 500 mg Documented By: BALWINDER Clopidogrel Bisulfate (Clopidogrel Bisulfate 75 Mg Tablet) 75 mg PO DAILY [facility] Last Admin: 08/15/22 10:05 Dose: 75 mg Documented By: BALWINDER Diltiazem HCl (Diltiazem Hcl Cd 240 Mg Cap.Er.Deg) 240 mg PO DAILY [facility]; Protocol Last Admin: 08/15/22 10:07 Dose: 240 mg Documented By: BALWINDER Ferrous Sulfate (Ferrous Sulfate 324 Mg Tablet.Dr) 324 mg PO DAILY@1200 [facility] Last Admin: 08/15/22 12:48 Dose: 324 mg Documented By: BALWINDER Fluticasone/Vilanterol (Fluticasone/Vilanterol 100/25 Blst.W.Dev) 1 puff INHALE RDAILY [facility] Furosemide (Furosemide 40 Mg Tablet) 40 mg PO BID@0600,1200 [facility]; Protocol Last Admin: 08/15/22 05:21 Dose: 40 mg Documented By: EVANS Guaifenesin/Dextromethorphan (Guaifenesin Dm 100/10/5 Ml 5 Ml Syrup) 5 ml PO Q6H PRN PRN Reason: cough Last Admin: 08/14/22 17:12 Dose: 5 ml Documented By: ISIDRO Hydralazine HCl (Hydralazine Hcl 25 Mg Tablet) 25 mg PO TID [facility]; Protocol Last Admin: 08/15/22 10:05 Dose: 25 mg Documented By: BALWINDER Ceftriaxone Sodium 1 gm/ (Sodium Chloride) 50 mls @ 100 mls/hr IV Q24H [facility] Last Infusion: 08/14/22 15:01 Dose: 0 mls/hr Documented By: JACQUIE Azithromycin 500 mg/ Sodium (Chloride) 250 mls @ 125 mls/hr IV Q24H [facility] Last Infusion: 08/14/22 18:22 Dose: 0 mls/hr Documented By: ISIDRO Levothyroxine Sodium (Levothyroxine Sodium 88 Mcg Tablet) 88 mcg PO DAILY@0600 [facility] Last Admin: 08/15/22 05:20 Dose: 88 mcg Documented By: EVANS Lisinopril (Lisinopril 40 Mg Tablet) 40 mg PO DAILY [facility]; Protocol Last Admin: 08/15/22 10:05 Dose: 40 mg Documented By: BALWINDER Multivitamins/Vitamin C (Multivitamin Tablet) 1 tab PO DAILY@1200 [facility] Last Admin: 08/15/22 12:48 Dose: 1 tab Documented By: BALWINDER Omeprazole (Omeprazole 20 Mg Capsule.Dr) 20 mg PO DAILY@0630 [facility] Last Admin: 08/15/22 05:18 Dose: 20 mg Documented By: EVANS Ondansetron HCl (Ondansetron Hcl 4 Mg/2 Ml Vial) 4 mg IVPUSH Q8H PRN PRN Reason: Nausea and Vomiting Oseltamivir Phosphate (Oseltamivir Phosphate 75 Mg Capsule) 75 mg PO Q24H [facility] Stop: 08/17/22 14:01 Last Admin: 08/15/22 12:48 Dose: 75 mg Documented By: BALWINDER Oxycodone HCl (Oxycodone Hcl Immed Release 5 Mg Tablet) 5 mg PO Q6H PRN PRN Reason: Pain, Mild (Pain Scale 1-3) Last Admin: 08/15/22 05:18 Dose: 5 mg Documented By: EVANS Pharmacy Consult (Consult Rx Perform Med Rec) 1 each MISCELLANE ONCE PRN PRN Reason: Consult order Sodium Chloride (0.9 % Sodium Chloride Flush 3 Ml Syringe) 3 ml IVFLUSH QSHIFT [facility] Last Admin: 08/15/22 10:07 Dose: 3 ml Documented By: BALWINDER Tiotropium [place] (Tiotropium [place] 18 Mcg Cap.W.Dev) 1 puff INHALE RDAILY [facility] Tramadol HCl (Tramadol Hcl 50 Mg Tablet) 25 mg PO TID [facility] Last Admin: 08/15/22 10:05 Dose: 25 mg Documented By: BALWINDER Vitamin D (Cholecalciferol (Vitamin D3) 25 Mcg Tablet) 25 mcg PO DAILY@1200 [facility] Last Admin: 08/15/22 12:48 Dose: 25 mcg Documented By: BALWINDER Labs CBC & Chem 7: 08/13/22 06:15 08/15/22 05:37 Labs: Laboratory Results - last 24 hr 08/14/22 08/14/22 08/14/22 13:00 13:00 17:12 Anion Gap Estim Creat Clear Calc Estimated GFR Random Glucose Calcium TSH Random Cortisol Urine Osmolality 345 L Ur Random Sodium 24.0 Ur Random Uric Acid 9.4 08/15/22 08/15/22 08/15/22 00:22 05:37 05:37 Anion Gap 13 15 Estim Creat Clear Calc 49.5 Estimated GFR > 60 Random Glucose 105 Calcium 8.5 TSH 1.77 Random Cortisol Urine Osmolality Ur Random Sodium Ur Random Uric Acid 08/15/22 05:37 Anion Gap Estim Creat Clear Calc Estimated GFR Random Glucose Calcium TSH Random Cortisol 16.8 Urine Osmolality Ur Random Sodium Ur Random Uric Acid Microbiology Microbiology Results: Microbiology 08/12/22 15:30 Blood Culture - Preliminary Blood - Venous No growth after 48 hours. 08/12/22 15:30 Blood Culture - Preliminary Blood - Venous No growth after 48 hours. Assessment and Plan (1) Influenza A: Status: Acute Plan 86 year old women admitted from assisted living facility with sepsis secondary to pneumonia and influenza A Sepsis secondary to CAP in influenza a. Resolved Fever and leukocytosis, normal lactic acid Rocephin and azithromycin Continue supplemental oxygen as needed Tamiflu Hyponatremia. Improving SIADH vs hypovolemia 1.5L for 24 hours, no IV fluids One dose of Urea today lasix and NA pill held see how NA is in am, discuss with nephro and consider dc Shoulder disclocation chronic Grade 2 diastolic dysfunction Continue Lasix b.i.d. Paroxysmal persistent atrial fibrillation Continue Eliquis, diltiazem Hypertension Stable blood pressure Continue home medications COPD no exacerbation Mental health continue home medications? GERD PPI Hypothyroidism Levothyroxine DVT prophylaxis with Eliquis Attending Dr. Goldberg Full code Continue hospitalization for treatment of sepsis secondary to community-acquired pneumonia and hyponatremia Time Spent With Patient Time: Total time managing care of this patient today ____ minutes. Quality Stroke Does the patient have a stroke diagnosis?: No VTE Prior VTE?: No VTE Risk Level:: Medical - moderate - high VTE Device Contraindication: Treatment Not Indicated VTE Drug Contraindication: N/A - Med Ordered
[2022-08-15 15:28] VITALS: BP 168/73; PULSE 72; RESP 20; TEMP 36.6; O2SAT 90
[2022-08-15] MEDS: cefTRIAXone sodium 1 GM in 0.9 % Sodium Chloride 50 ML IV (16:20)
[2022-08-15] MEDS: Azithromycin 500 MG in 0.9 % Sodium Chloride 250 ML 1250 MG IV (17:36)
[2022-08-15 19:30] VITALS: BP 174/77; PULSE 87; RESP 20; TEMP 36.6; O2SAT 89
[2022-08-15 21:12] VITALS: O2SAT 90
[2022-08-15] MEDS: Atorvastatin Calcium 20 MG TABLET PO (21:14)
[2022-08-16 03:34] VITALS: BP 139/64; PULSE 78; RESP 20; TEMP 36.9; O2SAT 93
[2022-08-16] MEDS: Levothyroxine Sodium 88 MCG TABLET PO (06:22)
[2022-08-16] MEDS: Omeprazole 20 MG CAPSULE.DR PO (06:22)
[2022-08-16 06:56] LABS: Anion Gap 14 (12-20); Blood Urea Nitrogen 19 mg/dL (9-16); Calcium 8.4 mg/dL (8.4-10.2); Carbon Dioxide 29 mmol/L (22-29); Chloride 93 mmol/L (96-108); Creatinine Clr Calc Pharmacy 49.5; Estimated Glomerular Filt Rate > 60; Glucose Random 110 mg/dL (60-115); Potassium 3.8 mmol/L (3.3-5.1); Sodium 132 mmol/L (135-145)
[2022-08-16] MEDS: 0.9 % Sodium Chloride Flush 3 ML SYRINGE IVFLUSH ×2 (07:30→15:53)
[2022-08-16] MEDS: Apixaban 5 MG TABLET PO ×2 (07:30→21:20)
[2022-08-16] MEDS: lisinopriL 40 MG TABLET PO (07:30)
[2022-08-16] MEDS: Clopidogrel Bisulfate 75 MG TABLET PO (07:30)
[2022-08-16] MEDS: hydrALAZINE HCl 25 MG TABLET PO ×3 (07:30→21:20)
[2022-08-16 07:54] VITALS: BP 158/69; PULSE 67; RESP 20; TEMP 36.4; O2SAT 96
[2022-08-16] MEDS: traMADoL HCL 50 MG TABLET 25 MG PO ×3 (09:22→21:20)
[2022-08-16] MEDS: dilTIAZem HCL CD 240 MG CAP.ER.DEG PO (09:22)
--- NOTE | 2022-08-16 11:05 | P.PNNP_ITS ---
Subjective Subjective Date of Service: 08/16/22 Interval history: Seen and examined, event noted Physical Exam Vital Signs: Vital Signs: Last Vital Signs Temp 97.6 F 08/16/22 07:54 Pulse 67 08/16/22 07:54 Resp 20 08/16/22 07:54 BP 158/69 H 08/16/22 07:54 Pulse Ox 96 08/16/22 07:54 O2 Del Method 08/16/22 07:54 O2 Flow Rate 4 08/16/22 07:54 BMI result Body Mass Index 24.0 Const: Other: /Frail elderly woman in no distress; constant involuntary movements of feet, legs and hands HEENT: Other: Dry MM erythema around mouth Neck: Other: Normal Chest: Other: Crackles Cardio: Other: No JVD on exam RRR, no S3 GI: Other: soft, nondistended, nontender, normal sounds Extrem: Other: 1 plus pretib edema Objective Data Labs CBC & Chem 7: 08/13/22 06:15 08/16/22 05:35 Labs: Laboratory Results - last 24 hr 08/16/22 05:35 Sodium 132 L Potassium 3.8 Chloride 93 L Carbon Dioxide 29 Anion Gap 14 BUN 19 H Creatinine 0.73 Estim Creat Clear Calc 49.5 Estimated GFR > 60 Random Glucose 110 Calcium 8.4 Microbiology Microbiology Results: Microbiology 08/12/22 15:30 Blood - Venous Blood Culture - Preliminary No growth after 48 hours. 08/12/22 15:30 Blood - Venous Blood Culture - Preliminary No growth after 48 hours. Procedures Date of Service Date of Service: 08/16/22 Assessment & Plan Assessment and plan (1) Hyponatremia with decreased serum osmolality: Status: Acute (2) Pulmonary hypertension: Status: Acute (3) Influenza A: Status: Acute (4) Lung mass: Status: Acute Plan Purnima is an 86 yo woman with COPD, pulm hypertension, HTN and possible heart failure (don't see recent echo) who presents with influenza and weakness and is found to have a mass-like consolidation on CXR. ON admission her sodium is 124. She was on lasix prior to admission and sodium tablets HYpoNa and ques vol status: dose not look Hypervol so euvolemic vs hypovolemic HypoNa Sna reamins > 130 off Nacl tabs and off diuretics Labile HTN REC: cont to hold NaCL tabs and Urea, watch to timin of r/s loop di uretics--avoid thiazide diuretics Will follow with team Time Spent With Patient Time: Total time managing care of this patient today ____ minutes. Progress Note: Quality Stroke Does the patient have a stroke diagnosis?: No
[2022-08-16] MEDS: Fluticasone/Vilanterol 100/25 BLST.W.DEV 1 PUFF INHALE (12:06)
[2022-08-16 12:09] VITALS: PULSE 80; RESP 14; O2SAT 93
[2022-08-16] MEDS: Multivitamin TABLET 1 TAB PO (12:42)
[2022-08-16] MEDS: Ascorbic Acid 500 MG TABLET PO (12:42)
[2022-08-16] MEDS: Ferrous Sulfate 324 MG TABLET.DR PO (12:42)
[2022-08-16] MEDS: Cholecalciferol (Vitamin D3) 25 MCG TABLET PO (12:42)
--- NOTE | 2022-08-16 13:24 | P.PNIM_ITS ---
Subjective Subjective Date of Service: 08/16/22 Interval History: No acute issues overnight. Breathing somewhat improved Review of Systems Denies chest pain Shortness of breath improved Denies nausea vomiting diarrhea Denies fever chills Physical Exam Vital Signs: Vital Signs: Last Vital Signs Temp 97.6 F 08/16/22 07:54 Pulse 80 08/16/22 12:09 Resp 14 08/16/22 12:09 BP 158/69 H 08/16/22 07:54 Pulse Ox 96 08/16/22 07:54 O2 Del Method 08/16/22 07:54 O2 Flow Rate 4 08/16/22 07:54 BMI result Body Mass Index 24.0 Const: Other: Awake alert no acute distress lying quietly in bed. No respiratory distress Resp: Other: Diminished at bases with coarse rhonchi throughout Cardio: Other: No S4; positive S1-S2; no S3 murmurs rubs or gallops GI: Other: Soft nontender nondistended normoactive bowel sounds Neuro: Other: Grossly nonfocal Extrem: Other: No edema bilaterally Objective Data Active Medications Acetaminophen (Acetaminophen 325 Mg Tablet) 650 mg PO Q6H PRN PRN Reason: Pain, Mild (Pain Scale 1-3) Last Admin: 08/12/22 17:46 Dose: 650 mg Documented By: AMBER Albuterol Sulfate (Albuterol Sulfate 90 Mcg 8 Gm Inhaler) 2 puff INHALE Q4H PRN PRN Reason: Shortness Of Breath Or Wheezing Albuterol/Ipratropium (Albuterol/Iprat 2.5/0.5mg 3 Ml Ampul.Neb) 3 ml INHALE RQ4H PRN PRN Reason: Shortness of Breath/Wheezing Apixaban (Apixaban 5 Mg Tablet) 5 mg PO BID COUNT INCLUDES THE [facility] Last Admin: 08/16/22 07:30 Dose: 5 mg Documented By: JAIME Artificial Tears (Artificial Tears 15 Ml Drops) 1 drop EYE-BOTH DAILY PRN PRN Reason: Dry Eye(S) Ascorbic Acid (Ascorbic Acid 500 Mg Tablet) 500 mg PO DAILY@1200 COUNT INCLUDES THE [facility] Last Admin: 08/16/22 12:42 Dose: 500 mg Documented By: JAIME Atorvastatin Calcium (Atorvastatin Calcium 20 Mg Tablet) 20 mg PO BEDTIME COUNT INCLUDES THE [facility] Last Admin: 08/15/22 21:14 Dose: 20 mg Documented By: SHERYL Calcium Carbonate (Calcium Carbonate 500 Mg Tablet) 500 mg PO DAILY@1200 COUNT INCLUDES THE [facility] Last Admin: 08/16/22 12:42 Dose: 500 mg Documented By: JAIME Clopidogrel Bisulfate (Clopidogrel Bisulfate 75 Mg Tablet) 75 mg PO DAILY COUNT INCLUDES THE [facility] Last Admin: 08/16/22 07:30 Dose: 75 mg Documented By: JAIME Diltiazem HCl (Diltiazem Hcl Cd 240 Mg Cap.Er.Deg) 240 mg PO DAILY COUNT INCLUDES THE [facility]; Protocol Last Admin: 08/16/22 09:22 Dose: 240 mg Documented By: JAIME Ferrous Sulfate (Ferrous Sulfate 324 Mg Tablet.Dr) 324 mg PO DAILY@1200 COUNT INCLUDES THE [facility] Last Admin: 08/16/22 12:42 Dose: 324 mg Documented By: JAIME Fluticasone/Vilanterol (Fluticasone/Vilanterol 100/25 Blst.W.Dev) 1 puff INHALE RDAILY COUNT INCLUDES THE [facility] Last Admin: 08/16/22 12:06 Dose: 1 puff Documented By: KARLA Furosemide (Furosemide 40 Mg Tablet) 40 mg PO BID@0600,1200 COUNT INCLUDES THE [facility]; Protocol Last Admin: 08/15/22 05:21 Dose: 40 mg Documented By: EVANS Guaifenesin/Dextromethorphan (Guaifenesin Dm 100/10/5 Ml 5 Ml Syrup) 5 ml PO Q6H PRN PRN Reason: cough Last Admin: 08/14/22 17:12 Dose: 5 ml Documented By: ISIDRO Hydralazine HCl (Hydralazine Hcl 25 Mg Tablet) 25 mg PO TID COUNT INCLUDES THE [facility]; Protocol Last Admin: 08/16/22 07:30 Dose: 25 mg Documented By: JAIME Ceftriaxone Sodium 1 gm/ (Sodium Chloride) 50 mls @ 100 mls/hr IV Q24H COUNT INCLUDES THE [facility] Last Infusion: 08/15/22 16:57 Dose: 100 mls/hr Documented By: BALWINDER Azithromycin 500 mg/ Sodium (Chloride) 250 mls @ 125 mls/hr IV Q24H COUNT INCLUDES THE [facility] Last Infusion: 08/15/22 18:22 Dose: 125 mls/hr Documented By: BALWINDER Levothyroxine Sodium (Levothyroxine Sodium 88 Mcg Tablet) 88 mcg PO DAILY@0600 COUNT INCLUDES THE [facility] Last Admin: 08/16/22 06:22 Dose: 88 mcg Documented By: SHERYL Lisinopril (Lisinopril 40 Mg Tablet) 40 mg PO DAILY COUNT INCLUDES THE [facility]; Protocol Last Admin: 08/16/22 07:30 Dose: 40 mg Documented By: JAIME Multivitamins/Vitamin C (Multivitamin Tablet) 1 tab PO DAILY@1200 COUNT INCLUDES THE [facility] Last Admin: 08/16/22 12:42 Dose: 1 tab Documented By: JAIME Omeprazole (Omeprazole 20 Mg Capsule.Dr) 20 mg PO DAILY@0630 COUNT INCLUDES THE [facility] Last Admin: 08/16/22 06:22 Dose: 20 mg Documented By: SHERYL Ondansetron HCl (Ondansetron Hcl 4 Mg/2 Ml Vial) 4 mg IVPUSH Q8H PRN PRN Reason: Nausea and Vomiting Oseltamivir Phosphate (Oseltamivir Phosphate 75 Mg Capsule) 75 mg PO Q24H COUNT INCLUDES THE [facility] Stop: 08/17/22 14:01 Last Admin: 08/15/22 12:48 Dose: 75 mg Documented By: BALWINDER Oxycodone HCl (Oxycodone Hcl Immed Release 5 Mg Tablet) 5 mg PO Q6H PRN PRN Reason: Pain, Mild (Pain Scale 1-3) Last Admin: 08/15/22 05:18 Dose: 5 mg Documented By: EVANS Pharmacy Consult (Consult Rx Perform Med Rec) 1 each MISCELLANE ONCE PRN PRN Reason: Consult order Sodium Chloride (0.9 % Sodium Chloride Flush 3 Ml Syringe) 3 ml IVFLUSH QSHIFT COUNT INCLUDES THE [facility] Last Admin: 08/16/22 07:30 Dose: 3 ml Documented By: JAIME Tiotropium [place] (Tiotropium [place] 18 Mcg Cap.W.Dev) 1 puff INHALE RDAILY COUNT INCLUDES THE [facility] Last Admin: 08/16/22 12:07 Dose: 1 puff Documented By: KARLA Tramadol HCl (Tramadol Hcl 50 Mg Tablet) 25 mg PO TID COUNT INCLUDES THE [facility] Last Admin: 08/16/22 09:22 Dose: 25 mg Documented By: JAIEM Vitamin D (Cholecalciferol (Vitamin D3) 25 Mcg Tablet) 25 mcg PO DAILY@1200 COUNT INCLUDES THE [facility] Last Admin: 08/16/22 12:42 Dose: 25 mcg Documented By: JAIME Labs CBC & Chem 7: 08/13/22 06:15 08/16/22 05:35 Labs: Laboratory Results - last 24 hr 08/16/22 05:35 Anion Gap 14 Estim Creat Clear Calc 49.5 Estimated GFR > 60 Random Glucose 110 Calcium 8.4 Assessment and Plan (1) Influenza A: Status: Acute (2) Pneumonia: Status: Acute (3) SIADH (syndrome of inappropriate ADH production): Status: Acute Plan 86 year old women admitted from assisted living facility with sepsis secondary to pneumonia and influenza A; slowly improved 1.CAP( in backdrop of influenza a -Rocephin/azithromycin (2) -Continue supplemental oxygen as needed -Tamiflu 2.Hyponatremia( hypovolemic) -no further IV fluids -continue to hold sodium chloride tabs/diuretics -follow renals/divalents in am 3.Grade 2 diastolic dysfunction(stable and well compensated) Continue Lasix b.i.d. 3.Paroxysmal fibrillation -will control on current therapies -Continue Eliquis, diltiazem 4.Hypertension -acceptable control on current therapies -adjust as indicated DVT prophylaxis with Eliquis Full code Will require ongoing hospitalization for IV antibiotics to treat community- acquired pneumonia Time Spent With Patient Time: Total time managing care of this patient today ___30_ minutes. Quality Stroke Does the patient have a stroke diagnosis?: No VTE Prior VTE?: No VTE Risk Level:: Medical - moderate - high VTE Device Contraindication: Treatment Not Indicated VTE Drug Contraindication: N/A - Med Ordered
[2022-08-16] MEDS: Oseltamivir Phosphate 75 MG CAPSULE PO (14:24)
[2022-08-16] MEDS: guaiFENesin DM 100/10/5 ML 5 ML SYRUP PO (14:24)
[2022-08-16] MEDS: cefTRIAXone sodium 1 GM in 0.9 % Sodium Chloride 50 ML IV (14:24)
[2022-08-16] MEDS: Albuterol/Iprat 2.5/0.5MG 3 ML AMPUL.NEB INHALE (15:12)
[2022-08-16 15:14] VITALS: PULSE 88; RESP 18
[2022-08-16 15:15] VITALS: BP 156/69; PULSE 87; RESP 19; TEMP 37.1; O2SAT 92
[2022-08-16] MEDS: Azithromycin 500 MG in 0.9 % Sodium Chloride 250 ML 125 MG IV (15:54)
[2022-08-16 20:00] VITALS: BP 160/70; PULSE 82; RESP 17; TEMP 36.6; O2SAT 92
[2022-08-16] MEDS: Atorvastatin Calcium 20 MG TABLET PO (21:20)
[2022-08-17] MEDS: 0.9 % Sodium Chloride Flush 3 ML SYRINGE IVFLUSH ×4 (01:06→20:23)
[2022-08-17 04:00] VITALS: BP 140/66; PULSE 66; RESP 16; TEMP 36.4; O2SAT 92
[2022-08-17] MEDS: Levothyroxine Sodium 88 MCG TABLET PO (05:49)
[2022-08-17] MEDS: Omeprazole 20 MG CAPSULE.DR PO (05:49)
[2022-08-17 08:00] VITALS: BP 148/62; PULSE 73; RESP 18; TEMP 36.5; O2SAT 91
[2022-08-17] MEDS: Fluticasone/Vilanterol 100/25 BLST.W.DEV 1 PUFF INHALE (08:03)
[2022-08-17 08:06] VITALS: PULSE 72; RESP 20; O2SAT 95
[2022-08-17 08:07] LABS: MANUAL DIFF FLAG NO
[2022-08-17 08:14] LABS: Basophils Percent Auto 0.2 % (0-2); Eosinophils Absolute Auto 0.1 X10*3/uL (0.0-0.4); Eosinophils Percent Auto 0.5 % (0-4); Hematocrit 29.7 % (37.0-47.0); Hemoglobin 9.9 g/dl (12.0-16.0); Imm Gran Abs Auto 0.13 X10*3/uL (0.00-0.03); Imm Gran Pct Auto 1.1 % (0.0-0.4); Lymphocytes Absolute Auto 0.6 X10*3/uL (1.2-4.9); Lymphocytes Percent Auto 4.7 % (20-40); Mean Corpuscular HGB Conc 33.3 g/dl (31.0-35.0); Mean Corpuscular Hemoglobin 30.7 pg (27.0-33.0); Mean Corpuscular Volume 92.2 fL (80.0-98.0); Mean Platelet Volume 9.1 fL (9.4-12.3); Monocytes Absolute Auto 1.3 X10*3/uL (0.1-1.2); Monocytes Percent Auto 10.5 % (2-11); Neutrophils Absolute Auto 10.2 x10*3/uL (2.0-8.3); Platelet Count 327 X10*3/uL (160-400); Red Blood Count 3.22 X10*6/uL (4.20-5.50); Red Cell Distribution Width 13.4 % (11.0-16.0); White Blood Count 12.2 X10*3/uL (4.8-10.8)
[2022-08-17 08:31] LABS: Alanine Aminotransferase 20 U/L (0-31); Albumin Level 2.6 g/dL (3.5-5.0); Alkaline Phosphatase 188 U/L (39-117); Anion Gap 11 (12-20); Aspartate Amino Transferase 21 U/L (5-31); Bilirubin Total 0.4 mg/dL (0.0-1.0); Blood Urea Nitrogen 17 mg/dL (9-16); Calcium 8.2 mg/dL (8.4-10.2); Carbon Dioxide 26 mmol/L (22-29); Chloride 95 mmol/L (96-108); Creatinine Clr Calc Pharmacy 53.1; Estimated Glomerular Filt Rate > 60; Glucose Random 146 mg/dL (60-115); Potassium 3.6 mmol/L (3.3-5.1); Sodium 128 mmol/L (135-145); Total Protein 4.9 g/dL (6.5-8.0)
[2022-08-17] MEDS: traMADoL HCL 50 MG TABLET 25 MG PO ×3 (08:40→20:22)
[2022-08-17] MEDS: lisinopriL 40 MG TABLET PO (08:41)
[2022-08-17] MEDS: Clopidogrel Bisulfate 75 MG TABLET PO (08:41)
[2022-08-17] MEDS: dilTIAZem HCL CD 240 MG CAP.ER.DEG PO (08:41)
[2022-08-17] MEDS: hydrALAZINE HCl 25 MG TABLET PO ×3 (08:41→20:23)
[2022-08-17] MEDS: Apixaban 5 MG TABLET PO ×2 (08:41→20:22)
[2022-08-17] MEDS: Urea 15 GM POWDER PO (09:54)
--- NOTE | 2022-08-17 11:18 | P.PNIM_ITS ---
Subjective Subjective Date of Service: 08/17/22 Interval History: Admitted with CPAP and influenza A. Breathing responding albeit slowly to antibiotics and steroids. No acute issues overnight Review of Systems Denies chest pain Admits to shortness of breath that is improved Denies nausea vomiting diarrhea Denies fever chills Physical Exam Vital Signs: Vital Signs: Last Vital Signs Temp 97.7 F 08/17/22 08:00 Pulse 72 08/17/22 08:06 Resp 20 08/17/22 08:06 BP 148/62 H 08/17/22 08:00 Pulse Ox 91 L 08/17/22 08:00 O2 Del Method 08/17/22 08:00 O2 Flow Rate 3 08/17/22 08:00 BMI result Body Mass Index 24.0 Const: Other: Awake alert no acute distress lying quietly in bed. No respiratory distress Resp: Other: Diminished at bases with coarse rhonchi throughout Cardio: Other: No S4; positive S1-S2; no S3 murmurs rubs or gallops GI: Other: Soft nontender nondistended normoactive bowel sounds Neuro: Other: Grossly nonfocal Extrem: Other: No edema bilaterally Objective Data Active Medications Acetaminophen (Acetaminophen 325 Mg Tablet) 650 mg PO Q6H PRN PRN Reason: Pain, Mild (Pain Scale 1-3) Last Admin: 08/12/22 17:46 Dose: 650 mg Documented By: AMBER Albuterol Sulfate (Albuterol Sulfate 90 Mcg 8 Gm Inhaler) 2 puff INHALE Q4H PRN PRN Reason: Shortness Of Breath Or Wheezing Albuterol/Ipratropium (Albuterol/Iprat 2.5/0.5mg 3 Ml Ampul.Neb) 3 ml INHALE RQ4H PRN PRN Reason: Shortness of Breath/Wheezing Last Admin: 08/16/22 15:12 Dose: 3 ml Documented By: ELVIA Apixaban (Apixaban 5 Mg Tablet) 5 mg PO BID [facility] Last Admin: 08/17/22 08:41 Dose: 5 mg Documented By: EJ Artificial Tears (Artificial Tears 15 Ml Drops) 1 drop EYE-BOTH DAILY PRN PRN Reason: Dry Eye(S) Ascorbic Acid (Ascorbic Acid 500 Mg Tablet) 500 mg PO DAILY@1200 [facility] Last Admin: 08/16/22 12:42 Dose: 500 mg Documented By: JAIME Atorvastatin Calcium (Atorvastatin Calcium 20 Mg Tablet) 20 mg PO BEDTIME [facility] Last Admin: 08/16/22 21:20 Dose: 20 mg Documented By: RUSSELL Calcium Carbonate (Calcium Carbonate 500 Mg Tablet) 500 mg PO DAILY@1200 [facility] Last Admin: 08/16/22 12:42 Dose: 500 mg Documented By: JAIME Clopidogrel Bisulfate (Clopidogrel Bisulfate 75 Mg Tablet) 75 mg PO DAILY [facility] Last Admin: 08/17/22 08:41 Dose: 75 mg Documented By: EJ Diltiazem HCl (Diltiazem Hcl Cd 240 Mg Cap.Er.Deg) 240 mg PO DAILY [facility]; Protocol Last Admin: 08/17/22 08:41 Dose: 240 mg Documented By: EJ Ferrous Sulfate (Ferrous Sulfate 324 Mg Tablet.Dr) 324 mg PO DAILY@1200 [facility] Last Admin: 08/16/22 12:42 Dose: 324 mg Documented By: JAIME Fluticasone/Vilanterol (Fluticasone/Vilanterol 100/25 Blst.W.Dev) 1 puff INHALE RDAILY [facility] Last Admin: 08/17/22 08:03 Dose: 1 puff Documented By: RHYS Furosemide (Furosemide 40 Mg Tablet) 40 mg PO BID@0600,1200 [facility]; Protocol Last Admin: 08/15/22 05:21 Dose: 40 mg Documented By: EVANS Guaifenesin/Dextromethorphan (Guaifenesin Dm 100/10/5 Ml 5 Ml Syrup) 5 ml PO Q6H PRN PRN Reason: cough Last Admin: 08/16/22 14:24 Dose: 5 ml Documented By: JAIME Hydralazine HCl (Hydralazine Hcl 25 Mg Tablet) 25 mg PO TID [facility]; Protocol Last Admin: 08/17/22 08:41 Dose: 25 mg Documented By: EJ Ceftriaxone Sodium 1 gm/ (Sodium Chloride) 50 mls @ 100 mls/hr IV Q24H [facility] Last Infusion: 08/16/22 15:00 Dose: 0 mls/hr Documented By: RUSSELL Azithromycin 500 mg/ Sodium (Chloride) 250 mls @ 125 mls/hr IV Q24H [facility] Last Infusion: 08/16/22 18:02 Dose: 0 mls/hr Documented By: RUSSELL Levothyroxine Sodium (Levothyroxine Sodium 88 Mcg Tablet) 88 mcg PO DAILY@0600 [facility] Last Admin: 08/17/22 05:49 Dose: 88 mcg Documented By: TAINA Lisinopril (Lisinopril 40 Mg Tablet) 40 mg PO DAILY [facility]; Protocol Last Admin: 08/17/22 08:41 Dose: 40 mg Documented By: EJ Multivitamins/Vitamin C (Multivitamin Tablet) 1 tab PO DAILY@1200 [facility] Last Admin: 08/16/22 12:42 Dose: 1 tab Documented By: JAIME Omeprazole (Omeprazole 20 Mg Capsule.Dr) 20 mg PO DAILY@0630 [facility] Last Admin: 08/17/22 05:49 Dose: 20 mg Documented By: TAINA Ondansetron HCl (Ondansetron Hcl 4 Mg/2 Ml Vial) 4 mg IVPUSH Q8H PRN PRN Reason: Nausea and Vomiting Oseltamivir Phosphate (Oseltamivir Phosphate 75 Mg Capsule) 75 mg PO Q24H [facility] Stop: 08/17/22 14:01 Last Admin: 08/16/22 14:24 Dose: 75 mg Documented By: JAIME Oxycodone HCl (Oxycodone Hcl Immed Release 5 Mg Tablet) 5 mg PO Q6H PRN PRN Reason: Pain, Mild (Pain Scale 1-3) Last Admin: 08/15/22 05:18 Dose: 5 mg Documented By: EVANS Pharmacy Consult (Consult Rx Perform Med Rec) 1 each MISCELLANE ONCE PRN PRN Reason: Consult order Sodium Chloride (0.9 % Sodium Chloride Flush 3 Ml Syringe) 3 ml IVFLUSH QSHIFT [facility] Last Admin: 08/17/22 08:41 Dose: 3 ml Documented By: EJ Tiotropium [place] (Tiotropium [place] 18 Mcg Cap.W.Dev) 1 puff INHALE RDAILY [facility] Last Admin: 08/17/22 08:03 Dose: 1 puff Documented By: RHYS Tramadol HCl (Tramadol Hcl 50 Mg Tablet) 25 mg PO TID [facility] Last Admin: 08/17/22 08:40 Dose: 25 mg Documented By: EJ Vitamin D (Cholecalciferol (Vitamin D3) 25 Mcg Tablet) 25 mcg PO DAILY@1200 [facility] Last Admin: 08/16/22 12:42 Dose: 25 mcg Documented By: JAIME Labs CBC & Chem 7: 08/17/22 07:55 08/17/22 07:56 Labs: Laboratory Results - last 24 hr 08/17/22 08/17/22 07:55 07:56 MCV 92.2 MCH 30.7 MCHC 33.3 RDW 13.4 Plt Count 327 D MPV 9.1 L Immature Gran % (Auto) 1.1 H Neut % (Auto) 83.0 H Lymph % (Auto) 4.7 L [place] % (Auto) 10.5 Eos % (Auto) 0.5 Baso % (Auto) 0.2 Lymph # (Auto) 0.6 L [place] # (Auto) 1.3 H Eos # (Auto) 0.1 Baso # (Auto) 0.0 Abs Immat Gran (auto) 0.13 H Absolute Neuts (auto) 10.2 H Absolute Nucleated RBC 0.000 Nucleated RBC % (auto) 0.0 Anion Gap 11 L Estim Creat Clear Calc 53.1 Estimated GFR > 60 Random Glucose 146 H Calcium 8.2 L Total Bilirubin 0.4 AST 21 ALT 20 Alkaline Phosphatase 188 H Total Protein 4.9 L Albumin 2.6 L Assessment and Plan (1) Influenza A: Status: Acute (2) Pneumonia: Status: Acute (3) SIADH (syndrome of inappropriate ADH production): Status: Acute Plan 86 year old women admitted from assisted living facility with sepsis secondary to pneumonia and influenza A; slowly improved 1.CAP( in backdrop of influenza a -Rocephin/azithromycin (3)... Hopeful DC in a.m. -Continue supplemental oxygen as needed -Tamiflu 2.Hyponatremia( hypovolemic) -no further IV fluids -continue to hold sodium chloride tabs/diuretics -follow renals/divalents in am.... Sodium stable 3.Grade 2 diastolic dysfunction(stable and well compensated) Continue Lasix b.i.d. 3.Paroxysmal fibrillation -will control on current therapies -Continue Eliquis, diltiazem 4.Hypertension -acceptable control on current therapies -adjust as indicated DVT prophylaxis with Eliquis Full code Will require ongoing hospitalization for IV antibiotics to treat community- acquired pneumonia Time Spent With Patient Time: Total time managing care of this patient today ____ minutes. Quality Stroke Does the patient have a stroke diagnosis?: No VTE Prior VTE?: No VTE Risk Level:: Medical - moderate - high VTE Device Contraindication: Treatment Not Indicated VTE Drug Contraindication: N/A - Med Ordered
[2022-08-17] MEDS: Ferrous Sulfate 324 MG TABLET.DR PO (11:50)
[2022-08-17] MEDS: Cholecalciferol (Vitamin D3) 25 MCG TABLET PO (11:50)
[2022-08-17] MEDS: Multivitamin TABLET 1 TAB PO (11:50)
[2022-08-17] MEDS: Ascorbic Acid 500 MG TABLET PO (11:50)
[2022-08-17] MEDS: Oseltamivir Phosphate 75 MG CAPSULE PO (13:06)
[2022-08-17] MEDS: cefTRIAXone sodium 1 GM in 0.9 % Sodium Chloride 50 ML IV (14:53)
[2022-08-17 16:00] VITALS: BP 151/73; PULSE 73; RESP 18; TEMP 37.5; O2SAT 92
[2022-08-17] MEDS: Azithromycin 500 MG in 0.9 % Sodium Chloride 250 ML 125 MG IV (16:13)
[2022-08-17 20:00] VITALS: BP 150/71; PULSE 75; RESP 16; TEMP 36.4; O2SAT 90
[2022-08-17] MEDS: Atorvastatin Calcium 20 MG TABLET PO (20:22)
[2022-08-18] VITALS (7 sets, daily range): BP systolic 143–177; BP diastolic 62–74; PULSE 72–91; RESP 16–18; TEMP 36.2–37.7; O2SAT 91–95
[2022-08-18] MEDS: Levothyroxine Sodium 88 MCG TABLET PO (06:01)
[2022-08-18] MEDS: Omeprazole 20 MG CAPSULE.DR PO (06:01)
[2022-08-18 06:02] LABS: Hematocrit 30.1 % (37.0-47.0); Hemoglobin 9.8 g/dl (12.0-16.0); Mean Corpuscular HGB Conc 32.6 g/dl (31.0-35.0); Mean Corpuscular Hemoglobin 29.6 pg (27.0-33.0); Mean Corpuscular Volume 90.9 fL (80.0-98.0); Mean Platelet Volume 8.9 fL (9.4-12.3); Platelet Count 407 X10*3/uL (160-400); Red Blood Count 3.31 X10*6/uL (4.20-5.50); Red Cell Distribution Width 13.3 % (11.0-16.0); White Blood Count 11.3 X10*3/uL (4.8-10.8)
[2022-08-18 06:18] LABS: Alanine Aminotransferase 30 U/L (0-31); Albumin Level 2.8 g/dL (3.5-5.0); Alkaline Phosphatase 223 U/L (39-117); Anion Gap 12 (12-20); Aspartate Amino Transferase 28 U/L (5-31); Bilirubin Total 0.5 mg/dL (0.0-1.0); Blood Urea Nitrogen 22 mg/dL (9-16); Calcium 8.4 mg/dL (8.4-10.2); Carbon Dioxide 28 mmol/L (22-29); Chloride 95 mmol/L (96-108); Creatinine Clr Calc Pharmacy 58.3; Estimated Glomerular Filt Rate > 60; Glucose Fasting 105 mg/dL (60-99); Potassium 4.1 mmol/L (3.3-5.1); Sodium 131 mmol/L (135-145); Total Protein 5.1 g/dL (6.5-8.0)
[2022-08-18] MEDS: Fluticasone/Vilanterol 100/25 BLST.W.DEV 1 PUFF INHALE (07:35)
[2022-08-18] MEDS: Albuterol/Iprat 2.5/0.5MG 3 ML AMPUL.NEB INHALE (07:35)
[2022-08-18] MEDS: hydrALAZINE HCl 25 MG TABLET PO ×3 (08:19→20:59)
[2022-08-18] MEDS: Clopidogrel Bisulfate 75 MG TABLET PO (08:19)
[2022-08-18] MEDS: lisinopriL 40 MG TABLET PO (08:20)
[2022-08-18] MEDS: Apixaban 5 MG TABLET PO ×2 (08:20→20:59)
[2022-08-18] MEDS: traMADoL HCL 50 MG TABLET 25 MG PO (08:20)
[2022-08-18] MEDS: 0.9 % Sodium Chloride Flush 3 ML SYRINGE IVFLUSH ×3 (08:21→21:00)
[2022-08-18] MEDS: dilTIAZem HCL CD 240 MG CAP.ER.DEG PO (08:23)
--- NOTE | 2022-08-18 09:36 | PM.DS ---
DS: Providers Provider Date of Service: 08/18/22 Date of admission: 08/12/22 17:22 Date of discharge: 08/18/22 Primary care physician: Aggie Hidalgo NP Consults: 08/12/22 17:25 Consult to Orthopedics Routine Consulting Provider: Sebastien Chen Reason for consultation: Right shoulder dislocation 08/12/22 17:32 Consult to Nephrology Routine Consulting Provider: Mahesh Nicole Reason for consultation: hyponatremia Has provider been notified: No DS: Diagnosis Discharge Diagnosis (1) Influenza A: Status: Acute (2) Pneumonia: Status: Acute (3) SIADH (syndrome of inappropriate ADH production): Status: Acute DS: Summary Hospital Course Hospital Course: 86-year-old woman presenting from assisted living facility with weakness, fever, chills, non productive cough, shortness breath, nausea, myalgias, arthralgias, rhinorrhea, intermittent right-sided chest pain with moderate heaviness mostly worse with coughing.? Patient thought that she was having a stroke because she could not move her arm.? She had been feeling unwell for approximately 2 days now.CTA showed left-sided pneumonia, right shoulder x-ray showed dislocation unknown if this is chronic, attempted reset in the ER was unsuccessful.? Sodium was noted to be low 124, likely secondary to SIADH, fever noted of 11.2, stable blood pressure.? Influenza A positive.? She was given a dose of Rocephin, azithromycin, Tamiflu, Zofran, Toradol, IV fluids.? She will be admitted for further management and treatment of sepsis secondary to community-acquired pneumonia and influenza A. Hospital Course Patient was seen in consultation by Nephrology felt sodium was related to SIADH secondary to lung mass. She was given urea and supplemental sodium chloride with good results. Discussed the renal sodium to be monitored as an outpatient a urea used as needed to maintain adequate sodium levels. No further diagnostics were done of chest mass this can be pursued as an outpatient. She continues to improve albeit slowly and still has an O2 requirement. At this point time she is medically acceptable for discharge to complete course of Ceftin and doxycycline as an outpatient. She will be maintained on a prednisone taper and hopes of tapering her oxygen to off Time Spent with Patient Time attestation: Total time managing care of this patient today __30__ minutes. Discharge coordination time: Greater than 30 minutes Quality: Safe Use of Opioids Does Pt have an Active Cancer Diagnosis on the Problem List?: No Quality: Stroke Does the patient have a stroke diagnosis?: No Physical Exam Vital Signs: Vital Signs: Last Vital Signs Temp 97.2 F 08/18/22 08:00 Pulse 80 08/18/22 08:00 Resp 18 08/18/22 08:00 BP 164/69 H 08/18/22 08:00 Pulse Ox 95 08/18/22 08:00 O2 Del Method 08/18/22 08:00 O2 Flow Rate 4 08/18/22 08:00 BMI result Body Mass Index 24.0 Const: Other: Awake alert no acute distress lying quietly in bed. No respiratory distress Resp: Other: Diminished at bases with coarse rhonchi throughout Cardio: Other: No S4; positive S1-S2; no S3 murmurs rubs or gallops GI: Other: Soft nontender nondistended normoactive bowel sounds Neuro: Other: Grossly nonfocal Extrem: Other: No edema bilaterally DS: Data Data Completed and Pending Labs on day of discharge: Laboratory Results - last 24 hr 08/18/22 08/18/22 05:43 05:43 WBC 11.3 H RBC 3.31 L Hgb 9.8 L Hct 30.1 L MCV 90.9 MCH 29.6 MCHC 32.6 RDW 13.3 Plt Count 407 H MPV 8.9 L Absolute Nucleated RBC 0.000 Nucleated RBC % (auto) 0.0 Sodium 131 L Potassium 4.1 Chloride 95 L Carbon Dioxide 28 Anion Gap 12 BUN 22 H Creatinine 0.62 Estim Creat Clear Calc 58.3 Estimated GFR > 60 Fasting Glucose 105 H Calcium 8.4 Total Bilirubin 0.5 AST 28 ALT 30 Alkaline Phosphatase 223 H Total Protein 5.1 L Albumin 2.8 L Discharge Plan Discharge Patient Disposition: Xfer LT Discharge Diagnosis: Pneumonia Referrals: Aggie Hidalgo NP [Primary Care Provider] - 1 Week Discharge Medications: New ipratropium-albuterol 0.5 mg-3 mg(2.5 mg base)/3 mL Solution For Nebulization 3 ml inhalation RQ4H PRN (Reason: Shortness Of Breath/Wheezing) Qty: 270 0RF cefuroxime axetil 250 mg tablet 250 mg PO BID 10 Days Qty: 20 0RF doxycycline hyclate 100 mg tablet 100 mg PO BID 10 Days Qty: 20 0RF prednisone 10 mg tablet See Rx Instructions .Route .COMPLEX Qty: 45 0RF Rx Instructions: 10 mg orally; 5 tabs p.o. daily x3 days; 4 tabs p.o. daily x3 days; 3 tabs daily x3 days; 2 tabs daily x3 days; 1 tab daily x3 days Continued furosemide 40 mg tablet 40 mg PO BID@0600,1200 atorvastatin 20 mg tablet 20 mg PO BEDTIME diltiazem HCl 240 mg capsule,extended release 24hr 240 mg PO DAILY hydralazine 25 mg tablet 25 mg PO TID tramadol 50 mg tablet 25 mg PO TID levothyroxine 88 mcg tablet 88 mcg PO DAILY@0600 Eliquis 5 mg tablet 5 mg PO BID acetaminophen 325 mg Tablet 650 mg PO Q4H PRN (Reason: Fever Or Pain) Rx Instructions: DO NOT EXCEED 3 GRAMS IN 24 HOURS polyvinyl alcohol [Artificial Tears (polyvin alc)] 1.4 % Drops 1 drp OPHTHALMIC (EYE) DAILY PRN (Reason: Dry Eye(S)) clopidogrel 75 mg Tablet 75 mg PO DAILY ferrous sulfate 325 mg (65 mg iron) Tablet 325 mg PO DAILY@1200 albuterol sulfate [ProAir HFA] 90 mcg/actuation Hfa Aerosol Inhaler 2 puff INHALATION Q4H PRN (Reason: Shortness Of Breath Or Wheezing) lisinopril 40 mg Tablet 40 mg PO DAILY sodium chloride 1,000 mg Tablet,Soluble 1,000 mg PO BID calcium carbonate [Oyster Shell Calcium] 500 mg calcium (1,250 mg) Tablet 500 mg PO DAILY@1200 ascorbic acid (vitamin C) 500 mg Tablet 500 mg PO DAILY@1200 multivitamin,tx-minerals Tablet 1 tab PO DAILY@1200 cholecalciferol (vitamin D3) 25 mcg (1,000 unit) Tablet 25 mcg PO DAILY@1200 omeprazole 20 mg Capsule,Delayed Release(Dr/Ec) 20 mg PO DAILY@0630 estradiol 0.01 % (0.1 mg/gram) Cream 1 g VAGINAL MOWEFR Trelegy Ellipta 100-62.5-25 mcg Blister With Device 1 inh INHALATION DAILY@0800 Rx Instructions: RINSE MOUTH AFTER USE Discharge Orders: Discharge Order (Routine); Ordered 08/18/22 Ordered By: Remington Turner Diet: Advance to usual diet Activity on Discharge: As tolerated Stand Alone Forms: Patient Portal Discharge page Care Plan Goals: Complete course of Ceftin 250 b.i.d. for 10 days and doxycycline 100 mg b.i.d. for 10 days; prednisone taper as ordered Health Concerns: Titrate O2 to maintain sats greater than or equal to 92% Plan of Treatment: Further plans as per receiving facility Assessment: See discharge summary
[2022-08-18] MEDS: Multivitamin TABLET 1 TAB PO (12:10)
[2022-08-18] MEDS: Ferrous Sulfate 324 MG TABLET.DR PO (12:10)
[2022-08-18] MEDS: Cholecalciferol (Vitamin D3) 25 MCG TABLET PO (12:10)
[2022-08-18] MEDS: Ascorbic Acid 500 MG TABLET PO (12:10)
--- NOTE | 2022-08-18 14:41 | PM.PNNEP ---
Subjective Subjective Date of Service: 08/18/22 Interval history: Seen and examined, events noted Physical Exam Vital Signs: Vital Signs: Last Vital Signs Temp 97.2 F 08/18/22 08:00 Pulse 80 08/18/22 11:17 Resp 18 08/18/22 08:00 BP 164/69 H 08/18/22 11:17 Pulse Ox 95 08/18/22 11:17 O2 Del Method 08/18/22 08:00 O2 Flow Rate 4 08/18/22 08:00 BMI result Body Mass Index 24.0 Const: Other: /Frail elderly woman in no distress; constant involuntary movements of feet, legs and hands HEENT: Other: Dry MM erythema around mouth Neck: Other: Normal Chest: Other: Crackles Cardio: Other: No JVD on exam RRR, no S3 GI: Other: soft, nondistended, nontender, normal sounds Extrem: Other: 1 plus pretib edema Objective Data Labs CBC & Chem 7: 08/18/22 05:43 08/18/22 05:43 Labs: Laboratory Results - last 24 hr 08/18/22 08/18/22 05:43 05:43 WBC 11.3 H RBC 3.31 L Hgb 9.8 L Hct 30.1 L MCV 90.9 MCH 29.6 MCHC 32.6 RDW 13.3 Plt Count 407 H MPV 8.9 L Absolute Nucleated RBC 0.000 Nucleated RBC % (auto) 0.0 Sodium 131 L Potassium 4.1 Chloride 95 L Carbon Dioxide 28 Anion Gap 12 BUN 22 H Creatinine 0.62 Estim Creat Clear Calc 58.3 Estimated GFR > 60 Fasting Glucose 105 H Calcium 8.4 Total Bilirubin 0.5 AST 28 ALT 30 Alkaline Phosphatase 223 H Total Protein 5.1 L Albumin 2.8 L Microbiology Microbiology Results: Microbiology 08/12/22 15:30 Blood - Venous Blood Culture - Final No growth after 5 days. 08/12/22 15:30 Blood - Venous Blood Culture - Final No growth after 5 days. Procedures Date of Service Date of Service: 08/18/22 Assessment & Plan Assessment and plan (1) Hyponatremia with decreased serum osmolality: Status: Acute (2) Pulmonary hypertension: Status: Acute (3) Influenza A: Status: Acute (4) Lung mass: Status: Acute Plan Purnima is an 86 yo woman with COPD, pulm hypertension, HTN and possible heart failure (don't see recent echo) who presents with influenza and weakness and is found to have a mass-like consolidation on CXR. ON admission her sodium was 124on adm. She was on lasix prior to admission and sodium tablets HYpoNa: improved Sna reamins > 130 off Nacl tabs and off diuretics Labile HTN REC: cont to hold NaCL tabs and Urea as needed, watch to timing of r/s loop diuretics--avoid thiazide diuretics Will follow with team Time Spent With Patient Time: Total time managing care of this patient today ____ minutes. Progress Note: Quality Stroke Does the patient have a stroke diagnosis?: No
[2022-08-18] MEDS: cefTRIAXone sodium 1 GM in 0.9 % Sodium Chloride 50 ML IV (14:44)
--- NOTE | 2022-08-18 14:57 | MHC.CM.PN ---
PT RECOMMENDING STR, PER HCP PT'S PREFERRED SNF IS [facility]) HOWEVER UNABLE TO OFFER BED D/T FLU AND WILL FOLLOW, CM WILL CONT TO FOLLOW D/C NEEDS.
[2022-08-18] MEDS: Azithromycin 500 MG in 0.9 % Sodium Chloride 250 ML 125 MG IV (15:34)
[2022-08-18] MEDS: Atorvastatin Calcium 20 MG TABLET PO (20:59)
[2022-08-18] MEDS: Acetaminophen 325 MG TABLET 650 MG PO (21:00)
[2022-08-18] MEDS: guaiFENesin DM 100/10/5 ML 5 ML SYRUP PO (21:07)
[2022-08-19] VITALS (8 sets, daily range): BP systolic 165–185; BP diastolic 72–88; PULSE 70–89; RESP 18–24; TEMP 36.3–37; O2SAT 91–96
[2022-08-19] MEDS: Albuterol/Iprat 2.5/0.5MG 3 ML AMPUL.NEB INHALE ×4 (04:01→22:17)
[2022-08-19] MEDS: guaiFENesin DM 100/10/5 ML 5 ML SYRUP PO ×3 (04:28→20:20)
--- NOTE | 2022-08-19 04:46 | PC.NURSE ---
Pt seen on bed at shift change alert and oriented, still SOB even at rest, with intermittent bouts of congested cough, tolerating o2 at 4L/min via NC, LS rhonchorous and dim, prn neb and guaifenisin po given, slept through the night. Woke up around 3am with o2sats at low 80s, with congested cough and labored breathe, O2 increased to 5l/min via nc, respiratory therapist paged for neb, O2 sats went up to high 90s, O2 put back to 4L/min via NC, another dose of prn guaifenisin po given, coughed out small amoount of bright red sputum after but didnt persist, needs attended.
[2022-08-19] MEDS: Omeprazole 20 MG CAPSULE.DR PO (05:29)
[2022-08-19] MEDS: Levothyroxine Sodium 88 MCG TABLET PO (05:29)
[2022-08-19] MEDS: Fluticasone/Vilanterol 100/25 BLST.W.DEV 1 PUFF INHALE (08:16)
[2022-08-19] MEDS: methylPREDNISolone Sod Succ 125 MG/2 ML VIAL IVPUSH (09:32)
[2022-08-19] MEDS: Apixaban 5 MG TABLET PO ×2 (09:32→20:20)
[2022-08-19] MEDS: lisinopriL 40 MG TABLET PO (09:32)
[2022-08-19] MEDS: hydrALAZINE HCl 25 MG TABLET PO ×3 (09:32→20:20)
[2022-08-19] MEDS: Clopidogrel Bisulfate 75 MG TABLET PO (09:32)
[2022-08-19] MEDS: 0.9 % Sodium Chloride Flush 3 ML SYRINGE IVFLUSH ×3 (09:32→20:21)
[2022-08-19] MEDS: dilTIAZem HCL CD 240 MG CAP.ER.DEG PO (09:34)
[2022-08-19] MEDS: Acetaminophen 325 MG TABLET 650 MG PO ×2 (09:35→20:20)
[2022-08-19] MEDS: Multivitamin TABLET 1 TAB PO (11:48)
[2022-08-19] MEDS: Ascorbic Acid 500 MG TABLET PO (11:48)
[2022-08-19] MEDS: Ferrous Sulfate 324 MG TABLET.DR PO (11:48)
[2022-08-19] MEDS: Cholecalciferol (Vitamin D3) 25 MCG TABLET PO (11:48)
--- NOTE | 2022-08-19 12:19 | HO.PM.IMPN ---
Subjective Subjective Date of Service: 08/19/22 Interval History: 86-year-old female admitted with pneumonia slowly progressing with antibiotics. Episode of desaturation overnight requiring increased oxygen. Review of Systems Denies chest pain Admit shortness of breath Denies nausea vomiting diarrhea t Denies fever chills Physical Exam Vital Signs: Vital Signs: Last Vital Signs Temp 97.6 F 08/19/22 08:00 Pulse 74 08/19/22 11:24 Resp 20 08/19/22 11:24 BP 185/82 H 08/19/22 08:00 Pulse Ox 93 08/19/22 08:00 O2 Del Method 08/19/22 08:00 O2 Flow Rate 4 08/19/22 08:00 BMI result Body Mass Index 24.0 Const: Other: Awake alert no acute distress lying quietly in bed. No respiratory distress Resp: Other: Diminished at bases with coarse rhonchi throughout Cardio: Other: No S4; positive S1-S2; no S3 murmurs rubs or gallops GI: Other: Soft nontender nondistended normoactive bowel sounds Neuro: Other: Grossly nonfocal Extrem: Other: No edema bilaterally Objective Data Active Medications Acetaminophen (Acetaminophen 325 Mg Tablet) 650 mg PO Q6H PRN PRN Reason: Pain, Mild (Pain Scale 1-3) Last Admin: 08/19/22 09:35 Dose: 650 mg Documented By: GAMA Albuterol Sulfate (Albuterol Sulfate 90 Mcg 8 Gm Inhaler) 2 puff INHALE Q4H PRN PRN Reason: Shortness Of Breath Or Wheezing Albuterol/Ipratropium (Albuterol/Iprat 2.5/0.5mg 3 Ml Ampul.Neb) 3 ml INHALE RQ4H PRN PRN Reason: Shortness of Breath/Wheezing Last Admin: 08/19/22 11:23 Dose: 3 ml Documented By: BLASCL Apixaban (Apixaban 5 Mg Tablet) 5 mg PO BID [facility] Last Admin: 08/19/22 09:32 Dose: 5 mg Documented By: GAMA Artificial Tears (Artificial Tears 15 Ml Drops) 1 drop EYE-BOTH DAILY PRN PRN Reason: Dry Eye(S) Ascorbic Acid (Ascorbic Acid 500 Mg Tablet) 500 mg PO DAILY@1200 NAA Last Admin: 08/19/22 11:48 Dose: 500 mg Documented By: GAMA Atorvastatin Calcium (Atorvastatin Calcium 20 Mg Tablet) 20 mg PO BEDTIME [facility] Last Admin: 08/18/22 20:59 Dose: 20 mg Documented By: CASTILMari Calcium Carbonate (Calcium Carbonate 500 Mg Tablet) 500 mg PO DAILY@1200 NAA Last Admin: 08/19/22 11:48 Dose: 500 mg Documented By: GAMA Clopidogrel Bisulfate (Clopidogrel Bisulfate 75 Mg Tablet) 75 mg PO DAILY [facility] Last Admin: 08/19/22 09:32 Dose: 75 mg Documented By: GAMA Diltiazem HCl (Diltiazem Hcl Cd 240 Mg Cap.Er.Deg) 240 mg PO DAILY [facility]; Protocol Last Admin: 08/19/22 09:34 Dose: 240 mg Documented By: GAMA Ferrous Sulfate (Ferrous Sulfate 324 Mg Tablet.Dr) 324 mg PO DAILY@1200 NAA Last Admin: 08/19/22 11:48 Dose: 324 mg Documented By: GAMA Fluticasone/Vilanterol (Fluticasone/Vilanterol 100/25 Blst.W.Dev) 1 puff INHALE RDAILY [facility] Last Admin: 08/19/22 08:16 Dose: 1 puff Documented By: BLAJASMINE Furosemide (Furosemide 40 Mg Tablet) 40 mg PO BID@0600,1200 [facility]; Protocol Last Admin: 08/15/22 05:21 Dose: 40 mg Documented By: OZORALB Guaifenesin/Dextromethorphan (Guaifenesin Dm 100/10/5 Ml 5 Ml Syrup) 5 ml PO Q6H PRN PRN Reason: cough Last Admin: 08/19/22 04:28 Dose: 5 ml Documented By: CASTILMari Hydralazine HCl (Hydralazine Hcl 25 Mg Tablet) 25 mg PO TID [facility]; Protocol Last Admin: 08/19/22 09:32 Dose: 25 mg Documented By: GAMA Ceftriaxone Sodium 1 gm/ (Sodium Chloride) 50 mls @ 100 mls/hr IV Q24H [facility] Last Infusion: 08/18/22 15:24 Dose: 0 mls/hr Documented By: LYSZ Azithromycin 500 mg/ Sodium (Chloride) 250 mls @ 125 mls/hr IV Q24H [facility] Last Infusion: 08/18/22 17:40 Dose: 0 mls/hr Documented By: RANDY Levothyroxine Sodium (Levothyroxine Sodium 88 Mcg Tablet) 88 mcg PO DAILY@0600 [facility] Last Admin: 08/19/22 05:29 Dose: 88 mcg Documented By: CRISTHIAN Lisinopril (Lisinopril 40 Mg Tablet) 40 mg PO DAILY [facility]; Protocol Last Admin: 08/19/22 09:32 Dose: 40 mg Documented By: GAMA Multivitamins/Vitamin C (Multivitamin Tablet) 1 tab PO DAILY@1200 [facility] Last Admin: 08/19/22 11:48 Dose: 1 tab Documented By: GAMA Omeprazole (Omeprazole 20 Mg Capsule.Dr) 20 mg PO DAILY@0630 [facility] Last Admin: 08/19/22 05:29 Dose: 20 mg Documented By: CRISTHIAN Ondansetron HCl (Ondansetron Hcl 4 Mg/2 Ml Vial) 4 mg IVPUSH Q8H PRN PRN Reason: Nausea and Vomiting Pharmacy Consult (Consult Rx Perform Med Rec) 1 each MISCELLANE ONCE PRN PRN Reason: Consult order Sodium Chloride (0.9 % Sodium Chloride Flush 3 Ml Syringe) 3 ml IVFLUSH QSHIFT [facility] Last Admin: 08/19/22 09:32 Dose: 3 ml Documented By: GAMA Tiotropium [place] (Tiotropium [place] 18 Mcg Cap.W.Dev) 1 puff INHALE RDAILY [facility] Last Admin: 08/19/22 08:16 Dose: 1 puff Documented By: GONSALO Vitamin D (Cholecalciferol (Vitamin D3) 25 Mcg Tablet) 25 mcg PO DAILY@1200 [facility] Last Admin: 08/19/22 11:48 Dose: 25 mcg Documented By: GAMA Labs CBC & Chem 7: 08/18/22 05:43 08/18/22 05:43 Assessment and Plan (1) Pneumonia: Status: Acute (2) Hyponatremia with decreased serum osmolality: Status: Acute (3) Paroxysmal atrial fibrillation: Status: Acute Plan 86 year old women admitted from assisted living facility with sepsis secondary to pneumonia and influenza A; slowly improved 1.CAP( in backdrop of influenza a -Rocephin/azithromycin (4)... -Continue supplemental oxygen as needed.. Increased requirement overnight -add IV Solu-Medrol 2.Hyponatremia( hypovolemic) -no further IV fluids -continue to hold sodium chloride tabs/diuretics -follow renals/divalents in am.... Sodium stable 3.Grade 2 diastolic dysfunction(stable and well compensated) Continue Lasix b.i.d. 3.Paroxysmal fibrillation -will control on current therapies -Continue Eliquis, diltiazem 4.Hypertension -acceptable control on current therapies -adjust as indicated DVT prophylaxis with Eliquis Full code Will require ongoing hospitalization for IV antibiotics to treat community-acquired pneumonia Time Spent With Patient Time: Total time managing care of this patient today ____ minutes. Quality Stroke Does the patient have a stroke diagnosis?: No VTE Prior VTE?: No VTE Risk Level:: Medical - moderate - high VTE Device Contraindication: Treatment Not Indicated VTE Drug Contraindication: N/A - Med Ordered
[2022-08-19] MEDS: cefTRIAXone sodium 1 GM in 0.9 % Sodium Chloride 50 ML IV (14:05)
[2022-08-19] MEDS: methylPREDNISolone Sod Succ 125 MG/2 ML VIAL 60 MG IVPUSH ×3 (14:05→23:47)
[2022-08-19] MEDS: Azithromycin 500 MG in 0.9 % Sodium Chloride 250 ML 125 MG IV (15:46)
[2022-08-19] MEDS: Atorvastatin Calcium 20 MG TABLET PO (20:20)
[2022-08-20] VITALS (10 sets, daily range): BP systolic 171–174; BP diastolic 76–95; PULSE 72–106; RESP 16–22; TEMP 36.2–36.9; O2SAT 83–97
[2022-08-20] MEDS: guaiFENesin DM 100/10/5 ML 5 ML SYRUP PO ×3 (01:55→15:43)
[2022-08-20] MEDS: Levothyroxine Sodium 88 MCG TABLET PO (05:40)
[2022-08-20] MEDS: methylPREDNISolone Sod Succ 125 MG/2 ML VIAL 60 MG IVPUSH ×3 (05:40→17:25)
[2022-08-20] MEDS: Omeprazole 20 MG CAPSULE.DR PO (05:40)
[2022-08-20 06:12] LABS: Hematocrit 30.3 % (37.0-47.0); Hemoglobin 10.1 g/dl (12.0-16.0); Imm Gran Abs Auto 0.11 X10*3/uL (0.00-0.03); Imm Gran Pct Auto 1.3 % (0.0-0.4); Lymphocytes Absolute Auto 0.4 X10*3/uL (1.2-4.9); Lymphocytes Percent Auto 4.8 % (20-40); MANUAL DIFF FLAG SCAN; Mean Corpuscular HGB Conc 33.3 g/dl (31.0-35.0); Mean Corpuscular Hemoglobin 29.9 pg (27.0-33.0); Mean Corpuscular Volume 89.6 fL (80.0-98.0); Monocytes Absolute Auto 0.1 X10*3/uL (0.1-1.2); Monocytes Percent Auto 1.2 % (2-11); Neutrophils Absolute Auto 7.9 x10*3/uL (2.0-8.3); Neutrophils Percent Auto 92.7 % (45-73); Platelet Count 598 X10*3/uL (160-400); Red Blood Count 3.38 X10*6/uL (4.20-5.50); Red Cell Distribution Width 13.1 % (11.0-16.0); SCAN SMEAR FLAG 1; White Blood Count 8.5 X10*3/uL (4.8-10.8)
[2022-08-20] MEDS: Albuterol/Iprat 2.5/0.5MG 3 ML AMPUL.NEB INHALE ×3 (06:17→19:27)
[2022-08-20 06:34] LABS: SLIDE REVIEW VERIFIED
[2022-08-20 06:43] LABS: Alanine Aminotransferase 60 U/L (0-31); Albumin Level 2.9 g/dL (3.5-5.0); Alkaline Phosphatase 263 U/L (39-117); Anion Gap 14 (12-20); Aspartate Amino Transferase 40 U/L (5-31); Bilirubin Total 0.3 mg/dL (0.0-1.0); Blood Urea Nitrogen 11 mg/dL (9-16); Calcium 8.8 mg/dL (8.4-10.2); Carbon Dioxide 25 mmol/L (22-29); Chloride 97 mmol/L (96-108); Creatinine Clr Calc Pharmacy 59.2; Estimated Glomerular Filt Rate > 60; Glucose Fasting 235 mg/dL (60-99); Potassium 4.3 mmol/L (3.3-5.1); Sodium 132 mmol/L (135-145); Total Protein 5.5 g/dL (6.5-8.0)
[2022-08-20] MEDS: Fluticasone/Vilanterol 100/25 BLST.W.DEV 1 PUFF INHALE (07:55)
[2022-08-20] MEDS: Clopidogrel Bisulfate 75 MG TABLET PO (09:20)
[2022-08-20] MEDS: lisinopriL 40 MG TABLET PO (09:20)
[2022-08-20] MEDS: Acetaminophen 325 MG TABLET 650 MG PO ×2 (09:20→15:43)
[2022-08-20] MEDS: dilTIAZem HCL CD 240 MG CAP.ER.DEG PO (09:20)
[2022-08-20] MEDS: hydrALAZINE HCl 25 MG TABLET PO ×3 (09:20→20:06)
[2022-08-20] MEDS: Apixaban 5 MG TABLET PO ×2 (09:20→20:06)
[2022-08-20] MEDS: 0.9 % Sodium Chloride Flush 3 ML SYRINGE IVFLUSH ×3 (09:21→20:06)
--- NOTE | 2022-08-20 10:35 | HO.PM.IMPN ---
Subjective Subjective Date of Service: 08/20/22 Interval History: Admitted with influenza a and pneumonia. Doing better with IV steroids. No acute events overnight Review of Systems Denies chest pain Admit shortness of breath Denies nausea vomiting diarrhea t Denies fever chills Physical Exam Vital Signs: Vital Signs: Last Vital Signs Temp 98.4 F 08/20/22 08:00 Pulse 106 H 08/20/22 08:00 Resp 22 H 08/20/22 08:00 BP 171/95 H 08/20/22 08:00 Pulse Ox 91 L 08/20/22 08:00 O2 Del Method 08/20/22 08:00 O2 Flow Rate 4 08/20/22 08:00 BMI result Body Mass Index 24.0 Const: Other: Awake alert no acute distress lying quietly in bed. No respiratory distress Resp: Other: Diminished at bases with coarse rhonchi throughout Cardio: Other: No S4; positive S1-S2; no S3 murmurs rubs or gallops GI: Other: Soft nontender nondistended normoactive bowel sounds Neuro: Other: Grossly nonfocal Extrem: Other: No edema bilaterally Objective Data Active Medications Acetaminophen (Acetaminophen 325 Mg Tablet) 650 mg PO Q6H PRN PRN Reason: Pain, Mild (Pain Scale 1-3) Last Admin: 08/20/22 09:20 Dose: 650 mg Documented By: GAMA Albuterol Sulfate (Albuterol Sulfate 90 Mcg 8 Gm Inhaler) 2 puff INHALE Q4H PRN PRN Reason: Shortness Of Breath Or Wheezing Apixaban (Apixaban 5 Mg Tablet) 5 mg PO BID [facility] Last Admin: 08/20/22 09:20 Dose: 5 mg Documented By: GAMA Artificial Tears (Artificial Tears 15 Ml Drops) 1 drop EYE-BOTH DAILY PRN PRN Reason: Dry Eye(S) Ascorbic Acid (Ascorbic Acid 500 Mg Tablet) 500 mg PO DAILY@1200 NAA Last Admin: 08/19/22 11:48 Dose: 500 mg Documented By: GAMA Atorvastatin Calcium (Atorvastatin Calcium 20 Mg Tablet) 20 mg PO BEDTIME [facility] Last Admin: 08/19/22 20:20 Dose: 20 mg Documented By: CASTILM Calcium Carbonate (Calcium Carbonate 500 Mg Tablet) 500 mg PO DAILY@1200 NAA Last Admin: 08/19/22 11:48 Dose: 500 mg Documented By: GAMA Clopidogrel Bisulfate (Clopidogrel Bisulfate 75 Mg Tablet) 75 mg PO DAILY [facility] Last Admin: 08/20/22 09:20 Dose: 75 mg Documented By: GAMA Albuterol Sulfate 2.5 mg/ (Albuterol/Ipratropium 3 ml) 0 mg INHALE Q4H [facility] Diltiazem HCl (Diltiazem Hcl Cd 240 Mg Cap.Er.Deg) 240 mg PO DAILY [facility]; Protocol Last Admin: 08/20/22 09:20 Dose: 240 mg Documented By: GAMA Ferrous Sulfate (Ferrous Sulfate 324 Mg Tablet.Dr) 324 mg PO DAILY@1200 [facility] Last Admin: 08/19/22 11:48 Dose: 324 mg Documented By: GAMA Fluticasone/Vilanterol (Fluticasone/Vilanterol 100/25 Blst.W.Dev) 1 puff INHALE RDAILY [facility] Last Admin: 08/20/22 07:55 Dose: 1 puff Documented By: BLASCCeci Furosemide (Furosemide 40 Mg Tablet) 40 mg PO BID@0600,1200 [facility]; Protocol Last Admin: 08/15/22 05:21 Dose: 40 mg Documented By: OZORALB Guaifenesin/Dextromethorphan (Guaifenesin Dm 100/10/5 Ml 5 Ml Syrup) 5 ml PO Q6H PRN PRN Reason: cough Last Admin: 08/20/22 09:20 Dose: 5 ml Documented By: GAMA Hydralazine HCl (Hydralazine Hcl 25 Mg Tablet) 25 mg PO TID [facility]; Protocol Last Admin: 08/20/22 09:20 Dose: 25 mg Documented By: SYLVAINEMA Ceftriaxone Sodium 1 gm/ (Sodium Chloride) 50 mls @ 100 mls/hr IV Q24H [facility] Last Infusion: 08/19/22 14:41 Dose: 0 mls/hr Documented By: SYLVAINEMA Azithromycin 500 mg/ Sodium (Chloride) 250 mls @ 125 mls/hr IV Q24H [facility] Last Infusion: 08/19/22 17:58 Dose: 0 mls/hr Documented By: GAMA Levothyroxine Sodium (Levothyroxine Sodium 88 Mcg Tablet) 88 mcg PO DAILY@0600 [facility] Last Admin: 08/20/22 05:40 Dose: 88 mcg Documented By: CRISTHIAN Lisinopril (Lisinopril 40 Mg Tablet) 40 mg PO DAILY [facility]; Protocol Last Admin: 08/20/22 09:20 Dose: 40 mg Documented By: GAMA Methylprednisolone Sodium Succinate (Methylprednisolone Sod Succ 125 Mg/2 Ml Vial) 60 mg IVPUSH Q6H [facility] Last Admin: 08/20/22 05:40 Dose: 60 mg Documented By: CRISTHIAN Multivitamins/Vitamin C (Multivitamin Tablet) 1 tab PO DAILY@1200 [facility] Last Admin: 08/19/22 11:48 Dose: 1 tab Documented By: GAMA Omeprazole (Omeprazole 20 Mg Capsule.Dr) 20 mg PO DAILY@0630 [facility] Last Admin: 08/20/22 05:40 Dose: 20 mg Documented By: CRISTHIAN Ondansetron HCl (Ondansetron Hcl 4 Mg/2 Ml Vial) 4 mg IVPUSH Q8H PRN PRN Reason: Nausea and Vomiting Pharmacy Consult (Consult Rx Perform Med Rec) 1 each MISCELLANE ONCE PRN PRN Reason: Consult order Sodium Chloride (0.9 % Sodium Chloride Flush 3 Ml Syringe) 3 ml IVFLUSH QSHIFT [facility] Last Admin: 08/20/22 09:21 Dose: 3 ml Documented By: GAMA Tiotropium [place] (Tiotropium [place] 18 Mcg Cap.W.Dev) 1 puff INHALE RDAILY [facility] Last Admin: 08/20/22 07:55 Dose: 1 puff Documented By: GONSALO Vitamin D (Cholecalciferol (Vitamin D3) 25 Mcg Tablet) 25 mcg PO DAILY@1200 [facility] Last Admin: 08/19/22 11:48 Dose: 25 mcg Documented By: GAMA Labs CBC & Chem 7: 08/20/22 05:15 08/20/22 05:15 Labs: Laboratory Results - last 24 hr 08/20/22 08/20/22 05:15 05:15 MCV 89.6 MCH 29.9 MCHC 33.3 RDW 13.1 Plt Count 598 H D MPV 9.0 L Immature Gran % (Auto) 1.3 H Neut % (Auto) 92.7 H Lymph % (Auto) 4.8 L Will % (Auto) 1.2 L Eos % (Auto) 0.0 Baso % (Auto) 0.0 Lymph # (Auto) 0.4 L Will # (Auto) 0.1 Eos # (Auto) 0.0 Baso # (Auto) 0.0 Abs Immat Gran (auto) 0.11 H Absolute Neuts (auto) 7.9 Absolute Nucleated RBC 0.000 Nucleated RBC % (auto) 0.0 Smear Tech's Comments VERIFIED Anion Gap 14 Estim Creat Clear Calc 59.2 Estimated GFR > 60 Fasting Glucose 235 H Calcium 8.8 Total Bilirubin 0.3 AST 40 H ALT 60 H Alkaline Phosphatase 263 H Total Protein 5.5 L Albumin 2.9 L Assessment and Plan (1) Pneumonia: Status: Acute (2) Influenza A: Status: Acute (3) Paroxysmal atrial fibrillation: Status: Acute Plan 86 year old women admitted from assisted living facility with sepsis secondary to pneumonia and influenza A; slowly improved 1.CAP( in backdrop of influenza a -Rocephin/azithromycin (5)... -Continue supplemental oxygen as needed.. Increased requirement overnight -continue steroids -schedule DuoNebs 2.Hyponatremia( hypovolemic) -no further IV fluids -continue to hold sodium chloride tabs/diuretics -follow renals/divalents in am.... Sodium stable 3.Grade 2 diastolic dysfunction(stable and well compensated) -Continue Lasix b.i.d. 3.Paroxysmal fibrillation -will control on current therapies -Continue Eliquis, diltiazem 4.Hypertension -acceptable control on current therapies -adjust as indicated DVT prophylaxis with Eliquis Full code Will require ongoing hospitalization for IV antibiotics to treat community-acquired pneumonia Time Spent With Patient Time: Total time managing care of this patient today ____ minutes. Quality Stroke Does the patient have a stroke diagnosis?: No VTE Prior VTE?: No VTE Risk Level:: Medical - moderate - high VTE Device Contraindication: Treatment Not Indicated VTE Drug Contraindication: N/A - Med Ordered
[2022-08-20] MEDS: Ascorbic Acid 500 MG TABLET PO (11:13)
[2022-08-20] MEDS: amLODIPine Besylate 10 MG TABLET PO (11:13)
[2022-08-20] MEDS: Ferrous Sulfate 324 MG TABLET.DR PO (11:13)
[2022-08-20] MEDS: Cholecalciferol (Vitamin D3) 25 MCG TABLET PO (11:13)
[2022-08-20] MEDS: Multivitamin TABLET 1 TAB PO (11:13)
[2022-08-20] MEDS: Albuterol Sulfate 2.5 MG, Albuterol/Iprat 2.5/0.5MG 3 ML 3 ML INHALE (11:53)
[2022-08-20] MEDS: cefTRIAXone sodium 1 GM in 0.9 % Sodium Chloride 50 ML IV (15:43)
[2022-08-20] MEDS: Azithromycin 500 MG in 0.9 % Sodium Chloride 250 ML 125 MG IV (17:25)
[2022-08-20] MEDS: Atorvastatin Calcium 20 MG TABLET PO (20:06)
[2022-08-21] MEDS: methylPREDNISolone Sod Succ 125 MG/2 ML VIAL 60 MG IVPUSH ×3 (00:12→12:30)
[2022-08-21] MEDS: guaiFENesin DM 100/10/5 ML 5 ML SYRUP PO (01:49)
[2022-08-21 04:00] VITALS: BP 162/68; PULSE 96; RESP 20; TEMP 36.9; O2SAT 93
[2022-08-21 05:37] VITALS: PULSE 90; RESP 20; O2SAT 94
[2022-08-21] MEDS: Albuterol/Iprat 2.5/0.5MG 3 ML AMPUL.NEB INHALE ×2 (05:37→11:33)
[2022-08-21 05:53] LABS: Basophils Percent Auto 0.2 % (0-2); Hemoglobin 9.8 g/dl (12.0-16.0); Imm Gran Abs Auto 0.18 X10*3/uL (0.00-0.03); Lymphocytes Absolute Auto 0.6 X10*3/uL (1.2-4.9); Lymphocytes Percent Auto 3.2 % (20-40); MANUAL DIFF FLAG SCAN; Mean Corpuscular HGB Conc 33.8 g/dl (31.0-35.0); Mean Corpuscular Hemoglobin 30.2 pg (27.0-33.0); Mean Corpuscular Volume 89.5 fL (80.0-98.0); Mean Platelet Volume 8.9 fL (9.4-12.3); Monocytes Absolute Auto 0.1 X10*3/uL (0.1-1.2); Monocytes Percent Auto 0.7 % (2-11); Neutrophils Absolute Auto 17.2 x10*3/uL (2.0-8.3); Neutrophils Percent Auto 94.9 % (45-73); Platelet Count 708 X10*3/uL (160-400); Red Blood Count 3.24 X10*6/uL (4.20-5.50); Red Cell Distribution Width 13.3 % (11.0-16.0); SCAN SMEAR FLAG 1; White Blood Count 18.1 X10*3/uL (4.8-10.8)
[2022-08-21] MEDS: Levothyroxine Sodium 88 MCG TABLET PO (06:02)
[2022-08-21] MEDS: Omeprazole 20 MG CAPSULE.DR PO (06:02)
[2022-08-21 06:08] LABS: Alanine Aminotransferase 64 U/L (0-31); Alkaline Phosphatase 236 U/L (39-117); Anion Gap 14 (12-20); Aspartate Amino Transferase 41 U/L (5-31); Bilirubin Total 0.3 mg/dL (0.0-1.0); Blood Urea Nitrogen 13 mg/dL (9-16); Calcium 8.9 mg/dL (8.4-10.2); Carbon Dioxide 26 mmol/L (22-29); Chloride 96 mmol/L (96-108); Creatinine Clr Calc Pharmacy 59.2; Estimated Glomerular Filt Rate > 60; Glucose Fasting 189 mg/dL (60-99); Potassium 4.6 mmol/L (3.3-5.1); Sodium 131 mmol/L (135-145); Total Protein 5.4 g/dL (6.5-8.0)
[2022-08-21 06:29] LABS: SLIDE REVIEW VERIFIED
[2022-08-21 07:59] VITALS: BP 176/79; PULSE 86; RESP 19; TEMP 36.8; O2SAT 93
[2022-08-21] MEDS: Fluticasone/Vilanterol 100/25 BLST.W.DEV 1 PUFF INHALE (08:01)
[2022-08-21 08:07] VITALS: PULSE 78; RESP 22; O2SAT 93
[2022-08-21] MEDS: dilTIAZem HCL CD 240 MG CAP.ER.DEG PO (08:29)
[2022-08-21] MEDS: 0.9 % Sodium Chloride Flush 3 ML SYRINGE IVFLUSH (08:29)
[2022-08-21] MEDS: Apixaban 5 MG TABLET PO (08:29)
[2022-08-21] MEDS: Acetaminophen 325 MG TABLET 650 MG PO (08:32)
[2022-08-21] MEDS: amLODIPine Besylate 10 MG TABLET PO (08:32)
[2022-08-21] MEDS: hydrALAZINE HCl 25 MG TABLET PO (08:32)
[2022-08-21] MEDS: lisinopriL 40 MG TABLET PO (08:32)
[2022-08-21] MEDS: Clopidogrel Bisulfate 75 MG TABLET PO (08:32)
--- NOTE | 2022-08-21 09:36 | P.PNNP_ITS ---
Subjective Subjective Date of Service: 08/21/22 Interval history: Admitted with influenza a and pneumonia. Doing better with IV steroids. No acute events overnight Physical Exam Vital Signs: Vital Signs: Last Vital Signs Temp 98.2 F 08/21/22 07:59 Pulse 78 08/21/22 08:07 Resp 22 H 08/21/22 08:07 BP 176/79 H 08/21/22 07:59 Pulse Ox 93 08/21/22 07:59 O2 Del Method 08/21/22 07:59 O2 Flow Rate 3.0 08/21/22 07:59 BMI result Body Mass Index 24.0 Const: Other: Awake alert no acute distress lying quietly in bed. No respiratory distress General: cooperative, healthy appearing, comfortable and no acute distress Orientation/consciousness: oriented to person and oriented to place Limitations: no limitations HEENT: Other: Dry MM erythema around mouth Head: Yes normal to inspection, Yes normocephalic and Yes atraumatic Ears: external ears normal General nose exam: Normal external nose present Face and sinus: Yes normal facial exam Mouth: Normal oral and palatal mucosa present Throat: Yes posterior oropharynx normal Eyes: General: appearance normal, both eyes and all related structures Pupils: Equal, round and reactive pupils present Neck: Other: Normal Neck: Yes normal visual inspection, Yes no lymphadenopathy, Yes trachea midline and Yes supple Chest: Other: Crackles Chest palpation & inspection: normal inspection of the chest and normal palpation of entire chest wall Resp: Other: Diminished at bases with coarse rhonchi throughout Effort & Inspection: normal respiratory effort and able to speak in complete sentences Auscultation: rhonchi (Diffuse) Cardio: Other: No S4; positive S1-S2; no S3 murmurs rubs or gallops Rate: regular rate Rhythm: regular rhythm Heart sounds: S1 normal heart sound present, S2 normal heart sound present and no murmurs GI: Other: Soft nontender nondistended normoactive bowel sounds Inspection: Yes normal to inspection Palpation (GI): Soft to palpation, nontender and no guarding Auscultation: normal bowel sounds : General: Yes no CVA tenderness Back/Spine/Pelvis: Back: no CVA tenderness Skin: General skin exam: no rashes or lesions noted Neuro: Other: Grossly nonfocal General: oriented to person and oriented to place Cranial nerves: Yes CN's II-XII intact bilaterally and Yes Equal, round and reactive pupils present Cognition (Neuro): normal cognition Motor exam (neuro): 5/5 motor strength present throughout (Patient had right shoulder surgery and has difficulty raising arm) Extrem: Other: No edema bilaterally General: Yes normal to inspection Psych: Appearance: grossly normal Speech and movement: Normal speech and movement present Affect: normal affect Attitude: cooperative Thought process: Normal thought process present Thought content: Normal thought content present Objective Data Labs CBC & Chem 7: 08/21/22 05:20 08/21/22 05:20 Labs: Laboratory Results - last 24 hr 08/21/22 08/21/22 05:20 05:20 WBC 18.1 H RBC 3.24 L Hgb 9.8 L Hct 29.0 L MCV 89.5 MCH 30.2 MCHC 33.8 RDW 13.3 Plt Count 708 H MPV 8.9 L Immature Gran % (Auto) 1.0 H Neut % (Auto) 94.9 H Lymph % (Auto) 3.2 L [place] % (Auto) 0.7 L Eos % (Auto) 0.0 Baso % (Auto) 0.2 Lymph # (Auto) 0.6 L [place] # (Auto) 0.1 Eos # (Auto) 0.0 Baso # (Auto) 0.0 Abs Immat Gran (auto) 0.18 H Absolute Neuts (auto) 17.2 H Absolute Nucleated RBC 0.000 Nucleated RBC % (auto) 0.0 Smear Tech's Comments VERIFIED Sodium 131 L Potassium 4.6 Chloride 96 Carbon Dioxide 26 Anion Gap 14 BUN 13 Creatinine 0.61 Estim Creat Clear Calc 59.2 Estimated GFR > 60 Fasting Glucose 189 H Calcium 8.9 Total Bilirubin 0.3 AST 41 H ALT 64 H Alkaline Phosphatase 236 H Total Protein 5.4 L Albumin 3.0 L Microbiology Microbiology Results: Microbiology 08/12/22 15:30 Blood - Venous Blood Culture - Final No growth after 5 days. 08/12/22 15:30 Blood - Venous Blood Culture - Final No growth after 5 days. Procedures Date of Service Date of Service: 08/21/22 Assessment & Plan Assessment and plan (1) Pneumonia: Status: Acute (2) Influenza A: Status: Acute (3) Paroxysmal atrial fibrillation: Status: Acute Plan Hyponatremia( hypovolemic) -no further IV fluids -continue to hold sodium chloride tabs/diuretics Sodium stable no new suggestions - Time Spent With Patient Time: Total time managing care of this patient today ____ minutes. Progress Note: Quality Stroke Does the patient have a stroke diagnosis?: No
[2022-08-21 11:33] VITALS: PULSE 83; RESP 20; O2SAT 92
--- NOTE | 2022-08-21 11:47 | MHC.CM.PN ---
Addendum entered by Lluvia Prescott 08/21/22 12:00: IMM DELIVERED Original Note: DP: PT HAS BEEN MEDICALLY CLEARED FOR DC TO [facility], [facility]. [facility] HAS OFFERED A BED. FAMILY NOTIFIED. RN AWARE. TRANSPORT BOOKED FOR 2 PM [facility]IA [facility].
[2022-08-21] MEDS: Cholecalciferol (Vitamin D3) 25 MCG TABLET PO (12:29)
[2022-08-21] MEDS: Ascorbic Acid 500 MG TABLET PO (12:29)
[2022-08-21] MEDS: Multivitamin TABLET 1 TAB PO (12:30)
[2022-08-21] MEDS: Ferrous Sulfate 324 MG TABLET.DR PO (12:30)
--- NOTE | 2022-08-21 13:26 | P.CDIC_ITS ---
CDI Concurrent Query Documentation Clarification: PHYSICIAN'S DOCUMENTATION REQUEST Date of Query: 08/21/22 1321 Patient Name: Purnima Montano Admit Date: 08/12/22 Dear Doctor, A review of the medical record indicates additional documentation may be needed. Please review below and update the documentation accordingly. Clinical Indicators: Risk Factors/Clinical Indicators/Treatments per MD progress note 08/20/22: Grade 2 diastolic dysfunction stable and well compensated) -Continue Lasix b.i.d. Please provide further specificity regarding the most likely type and acuity of CHF you are evaluating, treating, or monitoring. Examples include: Type: * Diastolic CHF * Other ? please specify * Unable to determine Acuity: * Acute * Chronic * Acute on chronic * Unable to determine Use of terms such as suspected, likely, concern for, or probable (associated with a specific diagnosis that is being evaluated, monitored, or treated as if it exists) are acceptable and can be coded in the inpatient setting, when docume nted at the time of discharge. Thank you, Mayra Williamson RN Extension: [phone] Please use your independent medical judgment in providing your response. THIS QUERY IS PART OF THE PERMANENT MEDICAL RECORD Provider Response: Other Other Diagnosis: Chronic diastolic CHF
[2022-08-21 13:49] LABS: COVID-19 Test Negative (Negative); IDNOW Serial# BCCEAD1C
== END 2022-08-21 15:36 | DRG 871 ==
LOC: HO.ED 17:28 → HO.EDOVER 17:35 → HO.S3 08-13 08:10
PROVIDERS: Internal Medicine Nephrology; Admitting Provider Nurse Practitioner Acute Care; Emergency Provider Emergency Medicine Emergency Medical Services; PCP Nurse Practitioner Adult Health; Visit Provider Hospitalist
DX: A41.9 Sepsis, unspecified organism (principal); J10.00 Influenza due to other identified influenza virus with unspecified type of pneumonia; E22.2 Syndrome of inappropriate secretion of antidiuretic hormone; J44.0 Chronic obstructive pulmonary disease with (acute) lower respiratory infection; T84.028A Dislocation of other internal joint prosthesis, initial encounter; E03.9 Hypothyroidism, unspecified; I11.0 Hypertensive heart disease with heart failure; I48.0 Paroxysmal atrial fibrillation; I27.20 Pulmonary hypertension, unspecified; Y79.2 Prosthetic and other implants, materials and accessory orthopedic devices associated with adverse incidents; Z86.73 Personal history of transient ischemic attack (TIA), and cerebral infarction without residual deficits; Z79.01 Long term (current) use of anticoagulants; Z79.02 Long term (current) use of antithrombotics/antiplatelets; Z79.899 Other long term (current) drug therapy
CPT/HCPCS: 0241U; 36415; 70450; 71045; 71275; 73020; 80048; 80051; 80053; 81003; 82533; 83605; 83690; 83735; 83930; 83935; 84300; 84443; 84484; 84550; 84560; 85025; 85027; 85610; 85730; 87040; 87635; 93005; 94640; 94664; 97162; 99285; J0456; J0696; J1885; J2405; J2930; Q9967

== ENCOUNTER 2024-03-13 13:05 | Outpatient (AMB) | payer MEDICARE, OTHER, MEDICAID, SELFPAY ==
--- NOTE | 2024-03-13 13:20 | A.OFFVIS_ITS ---
Intake Visit Reasons: OV, chronic dislocation of shldr Intake Note: Purnima is a 88 year old right hand dominant female who presents today for a follow up for chronic dislocation of right shoulder.[ patient reports that she had a Total shoulder replacement 9 years ago and has had pain ever since. Patient is a poor historian Allergies No Known Allergies Allergy (Unverified 05/20/20 17:32) HPI HPI OV, chronic dislocation of shldr: Details: Purnima is a 88 year old female who presents today for a follow up for chronic dislocation of right shoulder. This occurred several years ago and she has been living with it. She describes pain with activity. [facility] Medical History Paroxysmal atrial fibrillation CVA (cerebral vascular accident) Osteoarthritis Atrial fibrillation Chronic diastolic heart failure Carotid stenosis Hypertension Shoulder symptoms with history of shoulder arthroplasty Mental health disorder Hypothyroidism COPD (chronic obstructive pulmonary disease) Surgical History H/O carotid endarterectomy H/O knee surgery H/O shoulder surgery Social History Household Members: Other Household Members Other:: lives in Rest Home Housing: Assisted Living Facility Do you presently have visiting nurse or other home services: Yes Patient Tobacco Use Status: Current everyday Tobacco user Tobacco use type: Cigarette Cigarettes Per Day: 10 Advance Directives Date on File: 08/13/22 service: No Current occupational status: retired Physical Exam Extrem Other: She can get her and to her mouth and passive abduction to 90 deg. Pain tolerable but active motion limited. Results Reviewed Results Reviewed: I personally reviewed relevant radiographs. Chronically dislocated right francia Assessment & Plan Assessment & Plan (1) Chronic dislocation of right shoulder: Code(s): M24.411 - Recurrent dislocation, right shoulder Category: Medical Plan: Chronically dislocated shoulder in 88 yo F. This has been dislocated for at leas t 2 years. She is not a surgical candidate. I recommend continued assistance with ADL is correction. No intervention justifiable at this time. Coding Level of Care Code Est Pt Level 4 (99104) Diagnoses Chronic dislocation of right shoulder M24.411
== END 2024-03-13 14:08 | disposition home or self-care (01) ==
PROVIDERS: PCP Nurse Practitioner Adult Health; Visit Provider Orthopaedic Surgery
DX: M24.411 Recurrent dislocation, right shoulder (principal)
CPT/HCPCS: 99213

== ENCOUNTER → 2024-03-13 13:05 | Outpatient (BNVA) | payer MEDICARE, OTHER, MEDICAID, SELFPAY | PROVIDERS: PCP Nurse Practitioner Adult Health; Visit Provider Orthopaedic Surgery | DX: M24.411 Recurrent dislocation, right shoulder (principal) | CPT/HCPCS: 99212 ==